=== PATIENT | female | born 1955 | race American Indian/Alaskan Native ===

== ENCOUNTER 2016-09-07 20:15 | Inpatient (IN) | payer MEDICARE ==
[2016-09-07] MEDS ORDERED: SENOKOT PO PRN (21:25)
[2016-09-07] MEDS ORDERED: D50W (25GM) IV PRN (21:25)
[2016-09-07] MEDS ORDERED: DULCOLAX PR PRN (21:25)
[2016-09-07] MEDS ORDERED: TYLENOL PO PRN (21:25)
[2016-09-07] MEDS ORDERED: PERCOCET 5/325 PO PRN (21:30)
[2016-09-07] MEDS ORDERED: APRESOLINE PO SCH (22:00)
[2016-09-07] MEDS: APRESOLINE PO SCH (22:55)
[2016-09-07] MEDS: COREG PO SCH (22:55)
[2016-09-07] MEDS: NOVOLOG SUB-Q SCH (22:56)
[2016-09-08 05:02] LABS: Basophils % (Auto) 0.7 % (0.0-1.8); Eosinophils % (Auto) 2.3 % (0.0-4.3); Hematocrit 25.8 % (30.3-42.9); Hemoglobin 8.7 gm/dl (10.1-14.3); Mean Corpuscular HGB Conc 34 % (30-34); Mean Corpuscular Hemoglobin 30 pg (28-32); Mean Corpuscular Volume 88 fl (79-97); Platelet Count 277 K/mm3 (140-440); Red Blood Count 2.94 M/mm3 (3.65-5.03); Red Cell Distribution Width 14.5 % (13.2-15.2); White Blood Count 8.3 K/mm3 (4.5-11.0)
[2016-09-08 05:45] LABS: Albumin 1.9 g/dL (3.9-5); Albumin/Globulin Ratio 0.5 %; Alkaline Phosphatase 67 units/L (35-129); Anion Gap 14 mmol/L; BUN/Creatinine Ratio 7.77; Bilirubin,Total 0.2 mg/dL (0.1-1.2); Blood Urea Nitrogen 21 mg/dL (7-17); Calcium 7.4 mg/dL (8.4-10.2); Carbon Dioxide 28 mmol/L (22-30); Chloride 94.9 mmol/L (98-107); Glucose 147 mg/dL (65-100); Sodium 133 mmol/L (137-145)
[2016-09-08 05:50] LABS: Alanine Aminotransferase < 5 units/L (7-56)
[2016-09-08] MEDS: APRESOLINE PO SCH ×3 (06:20→22:11)
[2016-09-08] MEDS: PROTONIX PO SCH (09:19)
[2016-09-08] MEDS: COREG PO SCH ×2 (09:19→22:17)
[2016-09-08] MEDS: NORVASC PO SCH (09:20)
[2016-09-08] MEDS: BABY ASPIRIN PO SCH (09:21)
[2016-09-08] MEDS: NOVOLOG SUB-Q SCH ×4 (09:21→22:00)
[2016-09-08] MEDS: HEPARIN SUB-Q SCH ×2 (09:22→22:13)
--- NOTE | 2016-09-08 11:25 | Consultation ---
History of Present Illness - Reason for Consult Consult date: 09/08/16 acute renal failure, chronic renal failure Requesting physician: GEOVANNA COOLEY - History of Present Illness 61yo F with PMHx of Hypertension, Type 2 DM, complicated by neuropathy, nephropathy, CKD stage 4 with baseline Cr around 2mg/dl in the past (BUN/Cr at 31/2.14mg/dl on 06/20/16), chronic infection of left foot and L 2nd toe infection , who initially presented with worsening infection over the last few months. She was started on IV ABX for possible sepsis in the setting of worsening left toe/foot infections and underwent Left 2nd toe amputation on 08/27 but due to ongoing deterioration of wound, pt was later recommended for higher level amputation; left BKA completed on 08/30/16. During her hospitalization her renal function worsened and started dialysis. Her last dialysis was on 09/06. She is now transferred to acute rehab and we are asked to continue renal care while in rehab. She has noticed that her urine out has increased. Past Medical History: diabetes, hypertension, renal failure, other (diabetic neuropathy) Past Surgical History: cholecystectomy, , total hip replacement (right) , tonsillectomy Social history: no significant social history Family history: no significant family history Medications and Allergies Allergies Allergy/AdvReac Type Severity Reaction Status Date / Time No Known Allergies Allergy Verified 08/26/16 01:26 Home Medications Medication Instructions Recorded Confirmed Last Taken Type Carvedilol [Coreg] 25 mg PO BID 08/26/16 08/26/16 08/25/16 History Indapamide [Lozol] 2.5 mg PO QDAY 08/26/16 08/26/16 08/25/16 History Insulin Glargine [Lantus] 25 units SQ QHS 08/26/16 08/26/16 08/24/16 History Losartan [Cozaar] 100 mg PO HS 08/26/16 08/26/16 08/25/16 History glyBURIDE [Diabeta] 2.5 mg PO BID 08/26/16 08/26/16 08/25/16 History Active Meds: Active Medications Acetaminophen (Tylenol) 650 mg PO Q4H PRN PRN Reason: Pain MILD(1-3)/Fever >100.5/MURRY Amlodipine Besylate (Norvasc) 10 mg PO QDAY [facility] Last Admin: 09/08/16 09:20 Dose: 10 mg Aspirin (Baby Aspirin) 81 mg PO QDAY [facility] Last Admin: 09/08/16 09:21 Dose: 81 mg Atorvastatin Calcium (Lipitor) 20 mg PO QHS [facility] Bisacodyl (Dulcolax) 10 mg IN QDAY PRN PRN Reason: Constipation unrelieved by MOM Carvedilol (Coreg) 25 mg PO BID [facility] Last Admin: 09/08/16 09:19 Dose: 25 mg Dextrose (D50w (25gm)) 50 ml IV PRN PRN PRN Reason: Hypoglycemia Heparin Sodium (Porcine) (Heparin) 5,000 unit SUB-Q Q12HR [facility] Last Admin: 09/08/16 09:22 Dose: 5,000 unit Hydralazine HCl (Apresoline) 100 mg PO Q8HR [facility] Last Admin: 09/08/16 06:20 Dose: 100 mg Insulin Aspart (Novolog) 0 units SUB-Q ACHS [facility] PRN Reason: Protocol Last Admin: 09/08/16 09:21 Dose: 1 units Oxycodone/Acetaminophen (Percocet 5/325) 1 tab PO Q6H PRN PRN Reason: Pain, Moderate (4-6) Pantoprazole Sodium (Protonix) 40 mg PO QDAY [facility] Last Admin: 09/08/16 09:19 Dose: 40 mg Senna (Senokot) 8.6 mg PO Q12H PRN PRN Reason: Laxative Effect Review of Systems Constitutional: fatigue, no fever, no chills, no poor appetite, no daytime sleepiness Ears, nose, mouth and throat: no ear discharge, no tinnitis, no nose pain, no nasal congestion Cardiovascular: no chest pain, no orthopnea, no palpitations Respiratory: no cough, no hemoptysis, no shortness of breath Gastrointestinal: no abdominal pain, no nausea, no vomiting, no diarrhea Musculoskeletal: no neck stiffness, no neck pain Integumentary: no rash, no pruritis, no redness Neurological: no weakness, no numbness Psychiatric: no anxiety, no memory loss Endocrine: no cold intolerance, no heat intolerance Hematologic/Lymphatic: no easy bruising, no easy bleeding Exam - Vital Signs Vital signs: Vital Signs Temp Pulse Resp BP Pulse Ox 98.4 F 74 18 150/70 97 09/07/16 22:00 09/07/16 22:00 09/07/16 22:00 09/07/16 22:00 09/07/16 22:00 - Physical Exam Narrative exam: General appearance: well-developed, well-nourished, appears stated age EENT: ATNC, PERRL, mucous membranes moist Neck: no JVD, vascath in place Respiratory: Present: Clear to Ascultation Cardiology: regular, S1S2 Gastrointestinal: normal, normoactive bowel sounds Integumentary: no rash, other (S/p L BKA) Neurologic: no focal deficit, alert and oriented x3, strength 5/5, CN 3-12 intact Psychiatric: mood/affect appropriate, cooperative Results - Lab Results 09/08/16 04:33 09/08/16 04:33 Most recent lab results Calcium 7.4 mg/dL (8.4-10.2) L 09/08/16 04:33 Assessment and Plan 1. Acute kidney injury on CKD stage 4, most likely due to ischemic non-oliguric ATN in the setting of sepsis/anemia/IV vanco treatment; CKD most likely due to underlying diabetic nephropathy. baseline CR around 2.1mg/dl in Jun 2016 2. Left 2nd toe infection s/p amputation, left dorsal foot infection. 3. Type 2 DM with neuropathy/nephropathy 4. Hypertension 5. Anemia of chronic disease 6. Hyponatremia Plan/Recommendations: - CR increased to 2.7 today. Dialysis is on hold since 09/06. - Will continue to monitor off dialysis. Strict I/Os - Continue supportive care for JAS/ATN avoid nephrotoxins, NSAIDs, IV contrast - Monitor for renal recovery - Glucose control as per primary attending - Will monitor electrolytes and renal function closely Further recommendations to follow.
--- NOTE | 2016-09-08 11:57 | History and Physical Report ---
History of Present Illness Date: 09/08/16 Referring Facility: [facility] Date of admission: 09/07/16 20:15 Chief Complaint: left BKA History of present illness: POST ADMISSION PHYSICIAN EVALUATION ONSET DATE: 08/26/2016 IMPAIRMENT GROUP CODE: 05.4 ETIOLOGIC DIAGNOSIS: left BKA secondary to left foot abscess STATUS CHANGES SINCE PREADMISSION SCREENING: PAS has been reviewed. In comparison, pt is with resolved leukocytosis and slightly improved H/H; BUN/Cr slightly increased, however, stable. Pt was able to participate well with therapies, however, continue with significant functional deficits. Pain is much improved; denies any phantom pain. Pt remains an appropriate candidate for IPR course. PREVIOUS FUNCTIONAL STATUS: Independent with ADLs, gait, transfers CURRENT FUNCTIONAL STATUS: modA for bed mobility; maxA x2 for transfers and standing in parallel bars; independent to maxA for ADLs HPI 61 y.o. female admitted to [facility] secondary to worsening left foot/2nd toe infection over the course of 3 months; reported to have ischemic changes that led to presentation to the ED. On admission, pt was found to also have an abscess at the left foot. Vascular Surgery consultation was completed and pt was recommended/taken for open ray amputation of the second toe with incision and drainage of a left dorsal foot abscess with debridement on 08/27. Due to ongoing deterioration of wound, pt was later recommended for higher level amputation; left BKA completed on 08/30/16. Post-operative course was significant for altered mental status, CVA work-up negative; acute on chronic renal failure requiring prn hemodialysis (new during acute care admission) thought to be secondary to sepsis/IV Vanc/anemia; acute blood loss anemia s/p 2U pRBCs; significant functional deficits secondary to BKA. Pt has completed IV ABX. Renal function has stabilized. Pt is now admitted to IRU for aggressive therapies and ongoing medical management. Past History Past Medical History: diabetes, hypertension, renal failure (stage 4) Past Surgical History: cholecystectomy, , total hip replacement (right) , tonsillectomy Social history: Lives alone. denies: smoking, alcohol abuse Family history: diabetes, hypertension Medications and Allergies Allergies Allergy/AdvReac Type Severity Reaction Status Date / Time No Known Allergies Allergy Verified 08/26/16 01:26 Home Medications Medication Instructions Recorded Confirmed Last Taken Type Carvedilol [Coreg] 25 mg PO BID 08/26/16 08/26/16 08/25/16 History Indapamide [Lozol] 2.5 mg PO QDAY 08/26/16 08/26/16 08/25/16 History Insulin Glargine [Lantus] 25 units SQ QHS 08/26/16 08/26/16 08/24/16 History Losartan [Cozaar] 100 mg PO HS 08/26/16 08/26/16 08/25/16 History glyBURIDE [Diabeta] 2.5 mg PO BID 08/26/16 08/26/16 08/25/16 History Active Meds: Active Medications Acetaminophen (Tylenol) 650 mg PO Q4H PRN PRN Reason: Pain MILD(1-3)/Fever >100.5/MURRY Amlodipine Besylate (Norvasc) 10 mg PO QDAY [facility] Last Admin: 09/08/16 09:20 Dose: 10 mg Aspirin (Baby Aspirin) 81 mg PO QDAY [facility] Last Admin: 09/08/16 09:21 Dose: 81 mg Atorvastatin Calcium (Lipitor) 20 mg PO QHS [facility] Bisacodyl (Dulcolax) 10 mg [place] QDAY PRN PRN Reason: Constipation unrelieved by MOM Carvedilol (Coreg) 25 mg PO BID [facility] Last Admin: 09/08/16 09:19 Dose: 25 mg Dextrose (D50w (25gm)) 50 ml IV PRN PRN PRN Reason: Hypoglycemia Heparin Sodium (Porcine) (Heparin) 5,000 unit SUB-Q Q12HR [facility] Last Admin: 09/08/16 09:22 Dose: 5,000 unit Hydralazine HCl (Apresoline) 100 mg PO Q8HR [facility] Last Admin: 09/08/16 06:20 Dose: 100 mg Insulin Aspart (Novolog) 0 units SUB-Q ACHS [facility] PRN Reason: Protocol Last Admin: 09/08/16 09:21 Dose: 1 units Oxycodone/Acetaminophen (Percocet 5/325) 1 tab PO Q6H PRN PRN Reason: Pain, Moderate (4-6) Pantoprazole Sodium (Protonix) 40 mg PO QDAY [facility] Last Admin: 09/08/16 09:19 Dose: 40 mg Senna (Senokot) 8.6 mg PO Q12H PRN PRN Reason: Laxative Effect Review of Systems All systems: negative Ears, nose, mouth and throat: no headache Cardiovascular: no chest pain, no lightheadedness Respiratory: no cough Gastrointestinal: no nausea, no vomiting, no constipation Genitourinary Female: no dysuria Musculoskeletal: muscle weakness Neurological: no parathesias Exam - Constitutional Vitals: Vital Signs - 12hr 09/08/16 09/08/16 09/08/16 06:22 08:19 09:19 Temperature 98.4 F Pulse Rate 70 Pulse Rate [ 70 70 From Monitor] Respiratory 18 Rate Blood Pressure 162/76 Blood Pressure 152/70 162/76 [Left Arm] O2 Sat by Pulse 92 Oximetry 09/08/16 09:20 Temperature Pulse Rate 70 Pulse Rate [ From Monitor] Respiratory Rate Blood Pressure 162/76 Blood Pressure [Left Arm] O2 Sat by Pulse Oximetry General appearance: no acute distress, obese - EENT Eyes: EOM intact ENT: hearing intact - Neck Neck: supple, normal ROM - Respiratory Respiratory effort: normal Respiratory: bilateral: CTA - Cardiovascular Rhythm: regular Heart Sounds: Present: S1 & S2 - Extremities Extremity abnormal: edema (BLE), other (linh/sutures to Left residual limb; no active drainage, healing well) - Gastrointestinal General gastrointestinal: Present: soft, non-tender, non-distended, normal bowel sounds - Musculoskeletal Musculoskeletal: other (LLE- 2/5 hip flexion, 3/5 knee flexion/extension; otherwise, 4/5 strength in remaining extremities) - Neurologic Neurologic: CNII-XII intact, other (sensation grossly intact) - Psychiatric Psychiatric: appropriate mood/affect, intact judgment & insight, memory intact, cooperative - Labs CBC & Chem 7: 09/08/16 04:33 09/08/16 04:33 Labs: Laboratory Results - last 72 hr 09/07/16 09/08/16 09/08/16 21:50 04:33 04:33 WBC 8.3 RBC 2.94 L Hgb 8.7 L Hct 25.8 L MCV 88 MCH 30 MCHC 34 RDW 14.5 Plt Count 277 Lymph % (Auto) 16.3 Metcalfe % (Auto) 10.9 H Eos % (Auto) 2.3 Baso % (Auto) 0.7 Lymph # 1.4 Metcalfe # 0.9 H Eos # 0.2 Baso # 0.1 Seg Neutrophils % 69.8 Seg Neutrophils # 5.8 Sodium 133 L Potassium 4.0 Chloride 94.9 L Carbon Dioxide 28 Anion Gap 14 BUN 21 H Creatinine 2.7 H Estimated GFR 22 BUN/Creatinine Ratio 7.77 Glucose 147 H POC Glucose 166 H Calcium 7.4 L Total Bilirubin 0.2 AST 9 ALT < 5 L Alkaline Phosphatase 67 Total Protein 6.0 L Albumin 1.9 L Albumin/Globulin Ratio 0.5 09/08/16 05:51 WBC RBC Hgb Hct MCV MCH MCHC RDW Plt Count Lymph % (Auto) Metcalfe % (Auto) Eos % (Auto) Baso % (Auto) Lymph # Metcalfe # Eos # Baso # Seg Neutrophils % Seg Neutrophils # Sodium Potassium Chloride Carbon Dioxide Anion Gap BUN Creatinine Estimated GFR BUN/Creatinine Ratio Glucose POC Glucose 150 H Calcium Total Bilirubin AST ALT Alkaline Phosphatase Total Protein Albumin Albumin/Globulin Ratio Assessment and Plan Assessment and plan: 61 y.o. female s/p left BKA secondary to non-healing diabetic foot ulcer; post- op blood loss anemia, acute on chronic renal failure, gait dysfunction. The patient is medically stable, however, requires ongoing medical management. Pt is appropriate for inpatient rehabilitation admission and is thought to be able to tolerate at least 3 hours of therapy a day, 5 days a week including 1 hour of physical therapy, 1 hour of occupational therapy, and 1 hour of speech therapy. Patient is able to understand and follow basic directions and has attainable rehab goals. Potential barriers/complications include falls, wound dehiscence, skin breakdown, phantom pain, worsening renal function and return to HD, depression, DVT, PE, hypotension, syncope. Plan 1. Rehabilitation- Pt will undergo multidisciplinary/integrative rehab PT/OT/ AUTOMOBILE OR TRUCK RENTAL DISPATCHER, Nursing. Areas to be addressed include, but are not limited to PT for mobility, strengthening, transfer training, ROM, endurance, stairs, balance; OT for ADLs, household tasks, adaptive equipment; AUTOMOBILE OR TRUCK RENTAL DISPATCHER for cognitive screening; Nursing for carryover of therapies, pain control, education, skin integrity, medication management, bowel/bladder management; Nutrition as needed; human resources services specialist for discharge planning and equipment needs. Potential interventions include appropriate assistive device or adaptive equipment. Expected overall level of functional improvement by discharge is Jenny to CGA for ADLs at wheelchair level; Jenny for wheelchair mobility; CGA to supervision for transfers. CGA/Claire for short distances with RW. Pt will tentatively be discharged home with outpatient PT. Estimated length of stay is 10-14 days. 2. s/p left BKA- [place] to LLE; pain control; monitor for phantom pain; wound care 3. acute on chronic renal failure- Nephrology following; holding on any further HD at this time 4. HTN- continue Norvasc and coreg; adjust as needed 5. DM- continue ADA diet, SSI; hold lantus for now; home dose is 25U QHS and is not currently requiring much sliding scale; resume when appropriate 6. anemia- likely acute blood loss and also due to chronic renal failure; follow 7. hyponatremia- follow 8. DVT px- heparin - Patient Problems (1) Amputation of left lower extremity below knee Current Visit: Yes Status: Acute (2) Diabetic infection of left foot Current Visit: No Status: Acute (3) Acute on chronic renal failure Current Visit: Yes Status: Acute (4) HTN (hypertension) Current Visit: Yes Status: Chronic Qualifiers: Hypertension type: essential hypertension Qualified Code(s): I10 - Essential (primary) hypertension (5) Anemia due to blood loss, acute Current Visit: Yes Status: Acute (6) Hyponatremia Current Visit: Yes Status: Acute (7) Diabetes Current Visit: Yes Status: Chronic Qualifiers: Diabetes mellitus type: type 2 Diabetes mellitus complication status: with neurologic complications Diabetes mellitus complication detail: with polyneuropathy Diabetes mellitus vermin exterminator insulin use: with vermin exterminator use Qualified Code(s): E11.42 - Type 2 diabetes mellitus with diabetic polyneuropathy; Z79.4 - termite exterminator helper (current) use of insulin
[2016-09-09] MEDS: APRESOLINE PO SCH ×3 (05:42→22:10)
[2016-09-09] MEDS: NOVOLOG SUB-Q SCH ×4 (07:30→23:29)
[2016-09-09] MEDS: NORVASC PO SCH (08:56)
[2016-09-09] MEDS: BABY ASPIRIN PO SCH (08:56)
[2016-09-09] MEDS: COREG PO SCH ×2 (08:57→22:09)
[2016-09-09] MEDS: PROTONIX PO SCH (08:57)
[2016-09-09] MEDS: HEPARIN SUB-Q SCH ×3 (08:58→22:10)
--- NOTE | 2016-09-09 11:01 | Progress Note ---
Assessment and Plan - Patient Problems (1) Acute kidney failure with tubular necrosis Current Visit: Yes Status: Acute Plan to address problem: Follow-up kidney function and electrolytes. If remains stable, should be able to DC dialysis catheter on Sunday (2) Chronic kidney disease, stage IV (severe) Current Visit: Yes Status: Acute Plan to address problem: Continue management (3) Hyponatremia Current Visit: Yes Status: Acute Plan to address problem: Follow-up sodium (4) HTN (hypertension) Current Visit: Yes Status: Chronic Qualifiers: Hypertension type: essential hypertension Qualified Code(s): I10 - Essential (primary) hypertension Plan to address problem: Follow-up blood pressure on current medications (5) Diabetic infection of left foot Current Visit: No Status: Acute Plan to address problem: Patient is status post left below the knee amputation and is undergoing rehabilitation (6) Type 2 diabetes mellitus with diabetic neuropathy Current Visit: Yes Status: Acute Plan to address problem: Blood sugar control by primary attending (7) Anemia in chronic kidney disease (CKD) Current Visit: Yes Status: Acute Plan to address problem: Follow-up hemoglobin. We need to consider erythropoietin is less than 9 g/dL and iron stores normal Subjective Date of service: 09/09/16 Principal diagnosis: acute kidney injury/acute tubular necrosis Interval history: Patient seen sitting on the chair undergoing rehabilitation. She has no complaints. Denies shortness of breath, chest pain nausea or vomiting. Objective - Exam Narrative Exam: Morbidly obese middle-aged after medical female sitting on the chair in no acute distress CVS S1-S2 regular rate rhythm without murmur, rub or gallop Chest clear to auscultation Abdomen soft, obese, nontender no organomegaly no bruit bowel sounds present Extremities no edema no cyanosis or clubbing Neuro awake, alert oriented x3 no gross deficit - Vital Signs Vital signs: Vital Signs - 12hr 09/09/16 09/09/16 08:04 08:56 Temperature 98.0 F Pulse Rate 68 Pulse Rate [ 68 From Monitor] Respiratory 18 Rate Blood Pressure 131/67 Blood Pressure 131/67 [Left Arm] O2 Sat by Pulse 96 Oximetry - Lab 09/08/16 04:33 09/08/16 04:33 Most recent lab results Calcium 7.4 mg/dL (8.4-10.2) L 09/08/16 04:33
[2016-09-09 12:54] LABS: BUN/Creatinine Ratio 7.87; Calcium 7.6 mg/dL (8.4-10.2); Chloride 94.7 mmol/L (98-107); Potassium 4.3 mmol/L (3.6-5.0)
--- NOTE | 2016-09-09 13:06 | Progress Note ---
Assessment and Plan 61 y.o. female s/p left BKA secondary to non-healing diabetic foot ulcer; post- op blood loss anemia, acute on chronic renal failure, gait dysfunction - s/p left BKA- [place] to LLE; pain well controlled; monitor for phantom pain; wound care - acute on chronic renal failure- Nephrology following; holding on any further HD at this time - HTN- stable on Norvasc and coreg - DM- stable on SSI; continue to hold home lantus - anemia- stable - hyponatremia- stable - DVT px- heparin - Patient Problems (1) Amputation of left lower extremity below knee Current Visit: Yes Status: Acute (2) Diabetic infection of left foot Current Visit: No Status: Acute (3) Acute on chronic renal failure Current Visit: Yes Status: Acute (4) HTN (hypertension) Current Visit: Yes Status: Chronic Qualifiers: Hypertension type: essential hypertension Qualified Code(s): I10 - Essential (primary) hypertension (5) Anemia due to blood loss, acute Current Visit: Yes Status: Acute (6) Hyponatremia Current Visit: Yes Status: Acute (7) Diabetes Current Visit: Yes Status: Chronic Qualifiers: Diabetes mellitus type: type 2 Diabetes mellitus complication status: with neurologic complications Diabetes mellitus complication detail: with polyneuropathy Diabetes mellitus alf insulin use: with termination clerk use Qualified Code(s): E11.42 - Type 2 diabetes mellitus with diabetic polyneuropathy; Z79.4 - terminal manager (current) use of insulin Subjective Date of service: 09/09/16 Principal diagnosis: left BKA Interval history: Pt seen in room this AM, IPR F/U, s/p left BKA. Pt denies any pain; no new complaints on this AM Objective - Constitutional Vitals: Vital Signs - 12hr 09/09/16 09/09/16 08:04 08:56 Temperature 98.0 F Pulse Rate 68 Pulse Rate [ 68 From Monitor] Respiratory 18 Rate Blood Pressure 131/67 Blood Pressure 131/67 [Left Arm] O2 Sat by Pulse 96 Oximetry General appearance: Present: no acute distress, obese - EENT Eyes: EOM intact ENT: hearing intact - Neck Neck: supple, normal ROM - Respiratory Respiratory effort: normal Extremity abnormal: other ([place] to Left LE) - Gastrointestinal General gastrointestinal: Present: soft, non-tender - Neurologic Neurologic: CNII-XII intact - Psychiatric Psychiatric: appropriate mood/affect, cooperative - Allied health notes Allied health notes reviewed: PT (modA for bed mobility and sliding board transfers), OT (Independent to totalA for ADLs) - Labs CBC & Chem 7: 09/08/16 04:33 09/09/16 12:03 Labs: Abnormal lab results 09/08/16 09/08/16 09/09/16 Range/Units 16:41 21:26 06:23 Sodium (137-145) mmol/L Chloride (98-107) mmol/L BUN (7-17) mg/dL Creatinine (0.7-1.2) mg/dL Glucose (65-100) mg/dL POC Glucose 182 H 123 H 133 H (70-105) Calcium (8.4-10.2) mg/dL 09/09/16 09/09/16 Range/Units 11:40 12:03 Sodium 133 L (137-145) mmol/L Chloride 94.7 L (98-107) mmol/L BUN 26 H (7-17) mg/dL Creatinine 3.3 H (0.7-1.2) mg/dL Glucose 124 H (65-100) mg/dL POC Glucose 128 H (70-105) Calcium 7.6 L (8.4-10.2) mg/dL
--- NOTE | 2016-09-09 13:12 | IRU Plan of Care ---
Interdisciplinary Plan of Care - IP IRU INTERDISCIPLINARY PLAN: [facility] Plan of Care IRU Interdisciplinary Care Plan Start: 09/07/16 22: 35 Freq: Admission then PRN Status: Active Document 09/09/16 10:03 DB (Rec: 09/09/16 10:06 DB [id number]) Interdisciplinary Problem List Interdisciplinary Problem List Interdisciplinary Problem List Impaired Bathing/Grooming Query Text:Answers will Trigger Problems Impaired Dressing and Outcomes on Worklist. Impaired Mobility Impaired Transfers Impaired Toileting Impaired Nutrition Pain Management Knowledge Deficits Impaired Skin/Tissue Integrity Impaired Safety Medications Education Diabetes Education IRU Interdisciplinary Care Plan Therapy Services Therapy Services Will Include: Physical Therapy Query Text:Patient will be seen for a Occupational Therapy minimum of 3 hours of daily therapy 5 out of 7 days a week. Therapy intensity may be adjusted within a 7 consecutive day period to effectively serve the individual needs of the patient. Treatment Frequency/Intensity/Duration Treatment Frequency 5 days per week Treatment Intensity 1.5 hours per discipline (PT/OT ) daily Treatment Duration 10-14 days Problem Area: Eating/Swallowing Eating/Swallowing Outcomes Eating/Swallowing Interventions Problem Area: Bathing/Grooming Bathing/Grooming Outcomes Improve Cloud w/ Bathing Bathing/Grooming Interventions ADL Training Use of Assistive Devices Therapeutic Exercise Therapeutic Activity Balance Work Activity Tolerance Work Patient/Caregiver Education Problem Area: Dressing Dressing Outcomes Improve Cloud w/ LB Dressing Dressing Interventions ADL Training Use of Assistive Devices Therapeutic Exercise Balance Work Patient/Caregiver Education Problem Area: Mobility Mobility Outcomes Improve Cloud w/ Bed Mobility Improve Cloud w/ Ambulation Improve Cloud w/ Stairs /Curb Improve Cloud w/ Wheelchair Mobility Interventions Therapeutic Exercise Neuromuscular Re-Ed. Use of Assistive Devices Patient/Caregiver Education Bed Mobility Work Gait Training W/C Mobility Work Problem Area: Transfers Transfers Outcomes Improve Cloud w/ Bed Transfers Improve Cloud w/ Toilet Transfers Improve Cloud w/ Tub/ Shower Transfers Improve Cloud w/ Car Transfers Transfers Interventions Transfer Training Therapeutic Exercise Neuromuscular Re-Education Use of Assistive Devices Patient/Caregiver Education Problem Area: Bowel/Bladder Managment Bowel/Bladder Outcomes Bowel/Bladder Interventions Problem Area: Toileting Toileting Outcomes Improve Cloud w/ Toileting Toileting Interventions ADL Training Balance Work Use of Assistive Devices Patient/Caregiver Education Problem Area: Nutrition Nutrition Outcomes Understand and Comply w/ Diet Nutrition Interventions Monitor Nutrient Intake Patient/Caregiver Education Problem Area: Comprehension Comprehension Outcomes Comprehension Interventions Problem Area: Expression Expression Outcomes Expression Interventions Problem Area: Problem Solving Problem Solving Outcomes Problem Solving Interventions Problem Area: Memory Memory Outcomes Memory Interventions Problem Area: Pain Management Pain Management Outcomes Demonstrate/Verbalize Pain Strategies Pain Management Interventions Medication Management Positioning/Turning Patient/Caregiver Education Problem Area: Knowledge Deficits Knowledge Deficits Outcomes Verbalize Precautions Knowledge Deficits Interventions Body Mechanics/Joint Protection Education Disease Management Education Health Maintainence Education Safety Education Problem Area: Skin/Tissue Integrity Skin/Tissue Integrity Outcomes Exhibit Healing of Wound/ Incision Demonstrate Understanding of Pressure Relief Skin/Tissue Integrity Interventions Skin/Wound Care Pressure Relief Instruction Dressing Change Education Positioning/Turning Problem Area: Social Interaction Social Interaction Outcomes Social Interaction Interventions Problem Area: Adjustment to Disability Adjustment to Disability Outcomes Adjustment to Disability Interventions Problem Area: Discharge Concerns Discharge Concerns Outcomes Discharge Home w/ Necessary Equipment Have Home Health/Outpatient Services Discharge Concerns Interventions Discharge Planning Family/Caregiver Conference Family/Caregiver Training Problem Area: Community Reintegration Community Reintegration Outcomes Demonstrate Understanding of Community Resources Community Reintegration Interventions Provide Community Resources Problem Area: Home Management Home Management Outcomes Home Management Interventions Problem Area: Safety Safety Outcomes Provide Safe Environment Demonstrate Good Safety w/ Transfers/Mobility Safety Interventions Identify Fall Risk [place] Pt. to Environment Reduce Environmental Hazards Problem Area: Medication Education Medication Education Outcomes Patient/Caregiver will Verbalize Understanding of Medications Medication Education Interventions Explain Administration/Side Effects/Interactions Problem Area: Diabetes Education Diabetes Education Outcomes Demonstrate Knowledge of Resources Availlable in Diabetic Ed. Folder Diabetes Education Interventions Give Pt. Diabetes Education Folder Problem Area: Oxygenation Oxygenation Outcomes Oxygenation Interventions Problem Area: Cardiovascular Cardiovascular Outcomes Cardiovascular Interventions Physician Only Medical Prognosis and Rehabilitation Patient demonstrates good Potential (Completed by Physician) rehab potential. Medical Prognosis: Good This plan of care has been developed based on the findings from the pre- admission assessment, post admission physician evaluation, information gathered from the assessments from all therapy disciplines and other pertinent clinicians. The plan of care has been reviewed and discussed in collaboration with the interdisciplinary team. The plan of care will be reviewed and updated at least weekly. 61 y.o. female s/p left BKA secondary to non-healing diabetic foot ulcer; post- op blood loss anemia, acute on chronic renal failure, gait dysfunction. The patient remains at risk for falls, wound dehiscence, skin breakdown, phantom pain, worsening renal function and return to HD, depression, DVT, PE, hypotension, syncope. Will need ongoing close monitoring of renal function, anemia, DM, HTN. Pt is currently tolerating therapies, initiation of sliding board for transfers. Pt remains an appropriate candidate for IPR admission.
[2016-09-10 04:36] LABS: Hematocrit 26.1 % (30.3-42.9); Hemoglobin 8.6 gm/dl (10.1-14.3); Mean Corpuscular HGB Conc 33 % (30-34); Mean Corpuscular Hemoglobin 28 pg (28-32); Mean Corpuscular Volume 86 fl (79-97); Platelet Count 248 K/mm3 (140-440); Red Blood Count 3.03 M/mm3 (3.65-5.03); Red Cell Distribution Width 14.7 % (13.2-15.2); White Blood Count 7.5 K/mm3 (4.5-11.0)
[2016-09-10 05:22] LABS: BUN/Creatinine Ratio 8.7; Calcium 7.4 mg/dL (8.4-10.2); Magnesium 1.8 mg/dL (1.7-2.3); Phosphorous 5.7 mg/dL (2.5-4.5); Potassium 3.9 mmol/L (3.6-5.0)
[2016-09-10] MEDS: APRESOLINE PO SCH ×3 (05:26→22:47)
[2016-09-10] MEDS: NOVOLOG SUB-Q SCH ×4 (07:30→22:53)
[2016-09-10] MEDS: BABY ASPIRIN PO SCH (09:04)
[2016-09-10] MEDS: COREG PO SCH ×2 (09:04→22:47)
[2016-09-10] MEDS: NORVASC PO SCH (09:05)
[2016-09-10] MEDS: PROTONIX PO SCH (09:06)
[2016-09-10] MEDS: HEPARIN SUB-Q SCH ×2 (09:11→22:48)
--- NOTE | 2016-09-10 11:36 | Progress Note ---
Assessment and Plan - Patient Problems (1) Acute kidney failure with tubular necrosis Current Visit: Yes Status: Acute Plan to address problem: Acute tubular necrosis. Kidney function is improving. No indication for dialysis now. Still has some edema. Will continue to monitor renal function and electrolytes. Discontinue dialysis catheter in 1-2 days if continues to improve (2) Chronic kidney disease, stage IV (severe) Current Visit: Yes Status: Acute Plan to address problem: Continue management (3) Hyponatremia Current Visit: Yes Status: Acute Plan to address problem: Follow-up sodium (4) HTN (hypertension) Current Visit: Yes Status: Chronic Qualifiers: Hypertension type: essential hypertension Qualified Code(s): I10 - Essential (primary) hypertension Plan to address problem: Follow-up blood pressure on current medications (5) Diabetic infection of left foot Current Visit: No Status: Acute Plan to address problem: Patient is status post left below the knee amputation and is undergoing rehabilitation (6) Type 2 diabetes mellitus with diabetic neuropathy Current Visit: Yes Status: Acute Plan to address problem: Blood sugar control by primary attending (7) Anemia in chronic kidney disease (CKD) Current Visit: Yes Status: Acute Plan to address problem: Follow-up hemoglobin. We need to consider erythropoietin is less than 9 g/dL and iron stores normal Subjective Principal diagnosis: left BKA Interval history: Patient seen lying in bed. She has no complaints. Denies shortness of breath, chest pain nausea or vomiting. Objective - Exam Narrative Exam: Morbidly obese middle-aged after medical female lying in bed in no acute distress CVS S1-S2 regular rate rhythm without murmur, rub or gallop Chest clear to auscultation Abdomen soft, obese, nontender no organomegaly no bruit bowel sounds present Extremities no edema no cyanosis or clubbing Neuro awake, alert oriented x3 no gross deficit - Vital Signs Vital signs: Vital Signs - 12hr 09/10/16 09/10/16 05:20 09:04 Temperature 98.4 F Pulse Rate 65 Pulse Rate [ 65 Right Radial] Respiratory 18 Rate Blood Pressure 140/62 Blood Pressure 137/60 [Left Arm] O2 Sat by Pulse 95 Oximetry - Lab 09/10/16 04:15 09/10/16 04:15 Most recent lab results Calcium 7.4 mg/dL (8.4-10.2) L 09/10/16 04:15 Phosphorus 5.7 mg/dL (2.5-4.5) H 09/10/16 04:15 Magnesium 1.8 mg/dL (1.7-2.3) 09/10/16 04:15
[2016-09-11 05:31] LABS: Hematocrit 25.6 % (30.3-42.9); Hemoglobin 8.5 gm/dl (10.1-14.3); Mean Corpuscular HGB Conc 33 % (30-34); Mean Corpuscular Hemoglobin 29 pg (28-32); Mean Corpuscular Volume 87 fl (79-97); Platelet Count 238 K/mm3 (140-440); Red Blood Count 2.96 M/mm3 (3.65-5.03); Red Cell Distribution Width 14.7 % (13.2-15.2); White Blood Count 7.2 K/mm3 (4.5-11.0)
[2016-09-11] MEDS: APRESOLINE PO SCH ×3 (05:48→22:58)
[2016-09-11 05:50] LABS: BUN/Creatinine Ratio 9.71; Calcium 7.3 mg/dL (8.4-10.2); Chloride 95.4 mmol/L (98-107)
[2016-09-11] MEDS: BABY ASPIRIN PO SCH (09:56)
[2016-09-11] MEDS: COREG PO SCH ×2 (09:56→22:59)
[2016-09-11] MEDS: NORVASC PO SCH (09:57)
[2016-09-11] MEDS: PROTONIX PO SCH (09:57)
[2016-09-11] MEDS: HEPARIN SUB-Q SCH ×2 (09:58→23:00)
--- NOTE | 2016-09-11 11:42 | Progress Note ---
Assessment and Plan 61 y.o. female s/p left BKA secondary to non-healing diabetic foot ulcer; post- op blood loss anemia, acute on chronic renal failure, gait dysfunction - s/p left BKA- [place] to LLE; pain well controlled; monitor for phantom pain; wound care - acute on chronic renal failure- Nephrology f/u appreciated. Cr. 3.5 today. Pt. wondering about dialysis catheter. will leave it to Nephrology. - HTN- stable on Norvasc and coreg - DM- stable on SSI; continue to hold home lantus - anemia- stable. Hb. 8.5 will recheck. - hyponatremia- stable - DVT px- heparin - Patient Problems (1) Acute kidney failure with tubular necrosis Current Visit: Yes Status: Acute (2) Acute on chronic renal failure Current Visit: Yes Status: Acute (3) Amputation of left lower extremity below knee Current Visit: Yes Status: Acute (4) Anemia due to blood loss, acute Current Visit: Yes Status: Acute (5) Anemia in chronic kidney disease (CKD) Current Visit: Yes Status: Acute (6) Chronic kidney disease, stage IV (severe) Current Visit: Yes Status: Acute Subjective Date of service: 09/11/16 Principal diagnosis: left BKA Interval history: Patient seen and examined. wondering about dialysis catheter. Nephrology f/u appreciated. no N/V/C/D, PT/OT notes reviewed. Objective - Constitutional Vitals: Vital Signs - 12hr 09/11/16 09/11/16 09/11/16 03:45 09:56 09:57 Temperature 98.7 F Pulse Rate 65 65 Pulse Rate [ 96 H From Monitor] Respiratory 20 Rate Blood Pressure 132/59 132/59 Blood Pressure 137/62 [Left Arm] O2 Sat by Pulse 91 Oximetry General appearance: Present: no acute distress - EENT Eyes: PERRL ENT: hearing intact - Neck Neck: supple - Respiratory Respiratory effort: normal Respiratory: bilateral: CTA - Breasts Breasts: deferred - Cardiovascular Rhythm: regular Heart Sounds: Present: S1 & S2 Extremities: no ischemia, No edema, abnormal (s/p Lt. BKA, ROM of knee-full. no flexion contracture. motor/sensory intact) - Gastrointestinal General gastrointestinal: Present: soft, non-tender, normal bowel sounds - Genitourinary Female genitourinary: deferred - Integumentary Integumentary: clear, warm, dry - Musculoskeletal Musculoskeletal: strength equal bilaterally - Neurologic Neurologic: CNII-XII intact, no focal deficits - Allied health notes Allied health notes reviewed: nursing, PT, OT - Labs CBC & Chem 7: 09/11/16 05:03 09/11/16 05:03 Labs: Abnormal lab results 09/10/16 09/10/16 09/10/16 Range/Units 12:28 17:05 22:29 RBC (3.65-5.03) M/mm3 Hgb (10.1-14.3) gm/dl Hct (30.3-42.9) % Sodium (137-145) mmol/L Chloride (98-107) mmol/L BUN (7-17) mg/dL Creatinine (0.7-1.2) mg/dL Glucose (65-100) mg/dL POC Glucose 106 H 160 H 133 H (70-105) Calcium (8.4-10.2) mg/dL 09/11/16 09/11/16 09/11/16 Range/Units 05:03 05:03 05:23 RBC 2.96 L (3.65-5.03) M/mm3 Hgb 8.5 L (10.1-14.3) gm/dl Hct 25.6 L (30.3-42.9) % Sodium 135 L (137-145) mmol/L Chloride 95.4 L (98-107) mmol/L BUN 34 H (7-17) mg/dL Creatinine 3.5 H (0.7-1.2) mg/dL Glucose 124 H (65-100) mg/dL POC Glucose 136 H (70-105) Calcium 7.3 L (8.4-10.2) mg/dL
[2016-09-11] MEDS: NOVOLOG SUB-Q SCH ×4 (12:00→23:39)
--- NOTE | 2016-09-11 20:55 | Progress Note ---
Assessment and Plan - Patient Problems (1) Chronic kidney disease, stage IV (severe) Current Visit: Yes Status: Acute Plan to address problem: Continue management (2) Hyponatremia Current Visit: Yes Status: Acute Plan to address problem: Follow-up sodium (3) HTN (hypertension) Current Visit: Yes Status: Chronic Qualifiers: Hypertension type: essential hypertension Qualified Code(s): I10 - Essential (primary) hypertension Plan to address problem: Follow-up blood pressure on current medications (4) Diabetic infection of left foot Current Visit: No Status: Acute Plan to address problem: Patient is status post left below the knee amputation and is undergoing rehabilitation (5) Type 2 diabetes mellitus with diabetic neuropathy Current Visit: Yes Status: Acute Plan to address problem: Blood sugar control by primary attending (6) Anemia in chronic kidney disease (CKD) Current Visit: Yes Status: Acute Plan to address problem: Follow-up hemoglobin. We need to consider erythropoietin is less than 9 g/dL and iron stores normal (7) Acute kidney failure with tubular necrosis Current Visit: Yes Status: Acute Plan to address problem: Kidney disease is a bit worse. Also has worsening edema. Follow-up kidney function in morning. Unfortunately if kidney indices still worsening with the worsening edema, would need dialysis. Subjective Date of service: 09/11/16 Principal diagnosis: left BKA Interval history: Patient seen sitting on chair getting her hair done. She has no complaints. Denies shortness of breath, chest pain nausea or vomiting. Objective - Exam Narrative Exam: Morbidly obese middle-aged after medical female lying in bed in no acute distress CVS S1-S2 regular rate rhythm without murmur, rub or gallop Chest clear to auscultation Abdomen soft, obese, nontender no organomegaly no bruit bowel sounds present Extremities 2+ edema B/L Neuro awake, alert oriented x3 no gross deficit - Vital Signs Vital signs: Vital Signs - 12hr 09/11/16 09/11/16 09/11/16 09:56 09:57 17:00 Temperature 97.5 F L Pulse Rate 65 65 Pulse Rate [ 58 L Right Dorsalis Pedis] Blood Pressure 132/59 132/59 Blood Pressure 138/65 [Left Arm] O2 Sat by Pulse 98 Oximetry - Lab 09/11/16 05:03 09/11/16 05:03 Most recent lab results Calcium 7.3 mg/dL (8.4-10.2) L 09/11/16 05:03 Phosphorus 5.7 mg/dL (2.5-4.5) H 09/10/16 04:15 Magnesium 1.8 mg/dL (1.7-2.3) 09/10/16 04:15
[2016-09-12] MEDS: APRESOLINE PO SCH ×3 (05:37→22:00)
[2016-09-12] MEDS: COREG PO SCH ×2 (08:49→23:02)
[2016-09-12] MEDS: NOVOLOG SUB-Q SCH ×4 (08:49→23:00)
[2016-09-12] MEDS: NORVASC PO SCH (08:49)
[2016-09-12 09:28] LABS: Potassium TNR mmol/L (3.6-5.0); Sodium TNR mmol/L (137-145)
[2016-09-12 09:29] LABS: Anion Gap TNR mmol/L; BUN/Creatinine Ratio TNR; Blood Urea Nitrogen TNR mg/dL (7-17); Calcium TNR mg/dL (8.4-10.2); Carbon Dioxide TNR mmol/L (22-30); Chloride TNR mmol/L (98-107); Glucose TNR mg/dL (65-100)
--- NOTE | 2016-09-12 09:57 | Progress Note ---
Assessment and Plan 61 y.o. female s/p left BKA secondary to non-healing diabetic foot ulcer; post- op blood loss anemia, acute on chronic renal failure, gait dysfunction - s/p left BKA- [place] to LLE; pain well controlled; monitor for phantom pain; wound care - acute on chronic renal failure- Nephrology f/u appreciated. Cr. 3.5 yesterday. BMP pending. per nephrology, might need HD. - HTN- stable on Norvasc and coreg - DM- stable on SSI; continue to hold home lantus - anemia- stable. Hb. 8.5 yesterday. f/u H/H - hyponatremia- stable - DVT px- heparin - Patient Problems (1) Acute kidney failure with tubular necrosis Current Visit: Yes Status: Acute (2) Acute on chronic renal failure Current Visit: Yes Status: Acute (3) Amputation of left lower extremity below knee Current Visit: Yes Status: Acute (4) Anemia due to blood loss, acute Current Visit: Yes Status: Acute (5) Anemia in chronic kidney disease (CKD) Current Visit: Yes Status: Acute (6) Chronic kidney disease, stage IV (severe) Current Visit: Yes Status: Acute Subjective Date of service: 09/12/16 Principal diagnosis: left BKA Interval history: Patient seen and examined. wondering about dialysis catheter. Nephrology f/u appreciated. no N/V/C/D, PT/OT notes reviewed. Objective - Constitutional Vitals: Vital Signs - 12hr 09/11/16 09/12/16 22:59 08:49 Pulse Rate 60 59 L Blood Pressure 146/72 114/48 General appearance: Present: no acute distress - EENT Eyes: PERRL ENT: hearing intact - Respiratory Respiratory effort: normal Respiratory: bilateral: CTA - Cardiovascular Rhythm: regular Heart Sounds: Present: S1 & S2 Extremities: pulses intact Extremity abnormal: edema, other (left s/p BKA- ROM of knee full. no knee contracture.) - Gastrointestinal General gastrointestinal: Present: soft, non-tender, normal bowel sounds - Integumentary Integumentary: clear, warm, dry - Musculoskeletal Musculoskeletal: strength equal bilaterally - Neurologic Neurologic: CNII-XII intact, no focal deficits - Psychiatric Psychiatric: appropriate mood/affect, intact judgment & insight - Allied health notes Allied health notes reviewed: nursing, PT, OT - Labs CBC & Chem 7: 09/11/16 05:03 09/12/16 07:58 Labs: Abnormal lab results 09/11/16 09/11/16 09/11/16 Range/Units 12:01 17:46 21:23 POC Glucose 134 H 136 H 189 H (70-105) 09/12/16 Range/Units 05:35 POC Glucose 117 H (70-105)
[2016-09-12] MEDS: PROTONIX PO SCH (10:18)
[2016-09-12] MEDS: BABY ASPIRIN PO SCH (10:18)
[2016-09-12] MEDS: HEPARIN SUB-Q SCH ×2 (10:19→23:00)
[2016-09-12 15:00] LABS: Hematocrit 28.2 % (30.3-42.9); Hemoglobin 9.2 gm/dl (10.1-14.3); Mean Corpuscular HGB Conc 33 % (30-34); Mean Corpuscular Hemoglobin 29 pg (28-32); Mean Corpuscular Volume 87 fl (79-97); Platelet Count 261 K/mm3 (140-440); Red Blood Count 3.24 M/mm3 (3.65-5.03); Red Cell Distribution Width 14.9 % (13.2-15.2); White Blood Count 6.1 K/mm3 (4.5-11.0)
[2016-09-12 15:12] LABS: Calcium 7.4 mg/dL (8.4-10.2); Potassium 4.5 mmol/L (3.6-5.0)
--- NOTE | 2016-09-12 17:52 | Progress Note ---
Assessment and Plan - Patient Problems (1) Acute kidney failure with tubular necrosis Current Visit: Yes Status: Acute Plan to address problem: Kidney disease is a bit worse. Also has worsening edema. Follow-up kidney function in morning. Unfortunately if kidney indices still worsening with the worsening edema, would need dialysis.Get 24 hr urine Creatinine clearance (2) Chronic kidney disease, stage IV (severe) Current Visit: Yes Status: Acute Plan to address problem: Continue management (3) Hyponatremia Current Visit: Yes Status: Acute Plan to address problem: Follow-up sodium (4) HTN (hypertension) Current Visit: Yes Status: Chronic Qualifiers: Hypertension type: essential hypertension Qualified Code(s): I10 - Essential (primary) hypertension Plan to address problem: Follow-up blood pressure on current medications (5) Diabetic infection of left foot Current Visit: No Status: Acute Plan to address problem: Patient is status post left below the knee amputation and is undergoing rehabilitation (6) Type 2 diabetes mellitus with diabetic neuropathy Current Visit: Yes Status: Acute Plan to address problem: Blood sugar control by primary attending (7) Anemia in chronic kidney disease (CKD) Current Visit: Yes Status: Acute Plan to address problem: Follow-up hemoglobin. We need to consider erythropoietin is less than 9 g/dL and iron stores normal Subjective Date of service: 09/12/16 Principal diagnosis: left BKA Interval history: Patient seen lying in bed. She has no complaints. Denies shortness of breath, chest pain nausea or vomiting. Objective - Exam Narrative Exam: Morbidly obese middle-aged after medical female lying in bed in no acute distress CVS S1-S2 regular rate rhythm without murmur, rub or gallop Chest clear to auscultation Abdomen soft, obese, nontender no organomegaly no bruit bowel sounds present Extremities 2+ edema B/L Neuro awake, alert oriented x3 no gross deficit - Vital Signs Vital signs: Vital Signs - 12hr 09/12/16 09/12/16 08:49 10:00 Pulse Rate 59 L Blood Pressure 114/48 O2 Sat by Pulse 96 Oximetry - Lab 09/12/16 14:32 09/12/16 14:32 Most recent lab results Calcium 7.4 mg/dL (8.4-10.2) L 09/12/16 14:32 Phosphorus 5.7 mg/dL (2.5-4.5) H 09/10/16 04:15 Magnesium 1.8 mg/dL (1.7-2.3) 09/10/16 04:15
[2016-09-13] MEDS: APRESOLINE PO SCH ×3 (07:10→22:45)
[2016-09-13] MEDS: NOVOLOG SUB-Q SCH ×4 (07:30→23:25)
[2016-09-13 08:35] LABS: BUN/Creatinine Ratio 10.26; Calcium 7.4 mg/dL (8.4-10.2); Chloride 95.6 mmol/L (98-107); Potassium 4.3 mmol/L (3.6-5.0)
[2016-09-13] MEDS: NORVASC PO SCH (09:17)
[2016-09-13] MEDS: BABY ASPIRIN PO SCH (09:18)
[2016-09-13] MEDS: PROTONIX PO SCH (09:18)
[2016-09-13] MEDS: COREG PO SCH ×2 (09:18→23:05)
[2016-09-13] MEDS: HEPARIN SUB-Q SCH ×2 (09:19→22:10)
[2016-09-13] MEDS ORDERED: NACL 0.9% 1000 ML 100 ML IV PRN (09:44)
[2016-09-13] MEDS ORDERED: HEPARIN 10,000 UNITS/10 ML IV PRN (09:44)
--- NOTE | 2016-09-13 09:49 | Progress Note ---
Assessment and Plan - Patient Problems (1) Acute kidney failure with tubular necrosis Current Visit: Yes Status: Acute Plan to address problem: Kidney function still worsening and patient with significant edema. We'll go ahead and do dialysis today for fluid removal on solute clearance. Discussed with the patient importance of decreasing edema to actually help with wound healing also. Continue to monitor for renal recovery (2) Chronic kidney disease, stage IV (severe) Current Visit: Yes Status: Acute Plan to address problem: Continue management (3) Hyponatremia Current Visit: Yes Status: Acute Plan to address problem: Follow-up sodiumHypervolemic hyponatremia (4) HTN (hypertension) Current Visit: Yes Status: Chronic Qualifiers: Hypertension type: essential hypertension Qualified Code(s): I10 - Essential (primary) hypertension Plan to address problem: Follow-up blood pressure on current medications (5) Diabetic infection of left foot Current Visit: No Status: Acute Plan to address problem: Patient is status post left below the knee amputation and is undergoing rehabilitation (6) Type 2 diabetes mellitus with diabetic neuropathy Current Visit: Yes Status: Acute Plan to address problem: Blood sugar control by primary attending (7) Anemia in chronic kidney disease (CKD) Current Visit: Yes Status: Acute Plan to address problem: Give erythropoietin on dialysis Subjective Date of service: 09/13/16 Principal diagnosis: left BKA Interval history: Patient seen in the physical therapy department. She has no complaints other than not getting enough sleep last night. Her daughters were doing her hair. Denies shortness of breath, chest pain nausea or vomiting. Objective - Exam Narrative Exam: Morbidly obese middle-aged after medical female lying in bed in no acute distress CVS S1-S2 regular rate rhythm without murmur, rub or gallop Chest clear to auscultation Abdomen soft, obese, nontender no organomegaly no bruit bowel sounds present Extremities 2-3+ edema B/L Neuro awake, alert oriented x3 no gross deficit - Vital Signs Vital signs: Vital Signs - 12hr 09/12/16 09/12/16 09/13/16 22:00 23:02 07:00 Temperature 98.4 F Pulse Rate 60 Pulse Rate [ 86 62 Right Radial] Respiratory 16 20 Rate Blood Pressure 137/60 Blood Pressure 148/60 [Left Arm] O2 Sat by Pulse 96 Oximetry 09/13/16 09:17 Temperature Pulse Rate 62 Pulse Rate [ Right Radial] Respiratory Rate Blood Pressure 142/60 Blood Pressure [Left Arm] O2 Sat by Pulse Oximetry - Lab 09/12/16 14:32 09/13/16 07:42 Most recent lab results Calcium 7.4 mg/dL (8.4-10.2) L 09/13/16 07:42 Phosphorus 5.7 mg/dL (2.5-4.5) H 09/10/16 04:15 Magnesium 1.8 mg/dL (1.7-2.3) 09/10/16 04:15
--- NOTE | 2016-09-13 11:52 | Progress Note ---
Assessment and Plan 61 y.o. female s/p left BKA secondary to non-healing diabetic foot ulcer; post- op blood loss anemia, acute on chronic renal failure, gait dysfunction - s/p left BKA- [place] to LLE; pain well controlled; monitor for phantom pain; wound care - acute on chronic renal failure- Nephrology f/u appreciated. Cr. 3.8 today. patient is to get HD today. - HTN- stable on Norvasc and coreg - DM- stable on SSI; continue to hold home lantus - anemia- stable. Hb. 9.2. will get erythropoietin on HD - hyponatremia- hypervolemic hyponatremia. will get HD. - DVT px- heparin - D/C planning to SNF vs. home on 09/15/2016 - Patient Problems (1) Acute kidney failure with tubular necrosis Current Visit: Yes Status: Acute (2) Acute on chronic renal failure Current Visit: Yes Status: Acute (3) Amputation of left lower extremity below knee Current Visit: Yes Status: Acute (4) Anemia due to blood loss, acute Current Visit: Yes Status: Acute (5) Anemia in chronic kidney disease (CKD) Current Visit: Yes Status: Acute (6) Chronic kidney disease, stage IV (severe) Current Visit: Yes Status: Acute Subjective Date of service: 09/13/16 Principal diagnosis: left BKA Interval history: Patient seen and examined. Nephrology f/u appreciated. no N/V/C/D, PT/OT notes reviewed. Patient is to get HD today. Objective - Constitutional Vitals: Vital Signs - 12hr 09/13/16 09/13/16 07:00 09:17 Temperature 98.4 F Pulse Rate 62 Pulse Rate [ 62 Right Radial] Respiratory 20 Rate Blood Pressure 142/60 Blood Pressure 148/60 [Left Arm] O2 Sat by Pulse 96 Oximetry General appearance: Present: no acute distress - EENT Eyes: PERRL ENT: hearing intact - Respiratory Respiratory effort: normal Respiratory: bilateral: CTA - Breasts Breasts: deferred - Cardiovascular Rhythm: regular Heart Sounds: Present: S1 & S2 Extremities: no ischemia Extremity abnormal: edema - Gastrointestinal General gastrointestinal: Present: soft, non-tender, non-distended - Integumentary Integumentary: clear, warm, dry - Musculoskeletal Musculoskeletal: strength equal bilaterally, other (s/p left BKA. wound dressign intact. no discharge. no contracture) - Neurologic Neurologic: CNII-XII intact, no focal deficits - Psychiatric Psychiatric: appropriate mood/affect, intact judgment & insight - Allied health notes Allied health notes reviewed: nursing, PT, OT - Labs CBC & Chem 7: 09/12/16 14:32 09/13/16 07:42 Labs: Abnormal lab results 09/12/16 09/12/16 09/12/16 Range/Units 11:50 14:32 14:32 RBC 3.24 L (3.65-5.03) M/mm3 Hgb 9.2 L (10.1-14.3) gm/dl Hct 28.2 L (30.3-42.9) % Sodium 134 L (137-145) mmol/L Chloride 94.0 L (98-107) mmol/L BUN 37 H (7-17) mg/dL Creatinine 3.7 H (0.7-1.2) mg/dL Glucose 160 H (65-100) mg/dL POC Glucose 149 H (70-105) Calcium 7.4 L (8.4-10.2) mg/dL 09/12/16 09/12/16 09/13/16 Range/Units 16:15 22:02 06:48 RBC (3.65-5.03) M/mm3 Hgb (10.1-14.3) gm/dl Hct (30.3-42.9) % Sodium (137-145) mmol/L Chloride (98-107) mmol/L BUN (7-17) mg/dL Creatinine (0.7-1.2) mg/dL Glucose (65-100) mg/dL POC Glucose 157 H 152 H 125 H (70-105) Calcium (8.4-10.2) mg/dL 09/13/16 Range/Units 07:42 RBC (3.65-5.03) M/mm3 Hgb (10.1-14.3) gm/dl Hct (30.3-42.9) % Sodium 134 L (137-145) mmol/L Chloride 95.6 L (98-107) mmol/L BUN 39 H (7-17) mg/dL Creatinine 3.8 H (0.7-1.2) mg/dL Glucose 121 H (65-100) mg/dL POC Glucose (70-105) Calcium 7.4 L (8.4-10.2) mg/dL
[2016-09-13] MEDS ORDERED: NACL 0.9 (PRIMING MACHINE ONLY DIALYSIS) MC ONE (20:01)
[2016-09-14] MEDS: APRESOLINE PO SCH ×3 (06:15→22:22)
[2016-09-14] MEDS: NOVOLOG SUB-Q SCH ×4 (07:30→22:26)
--- NOTE | 2016-09-14 08:23 | Progress Note ---
Assessment and Plan - Patient Problems (1) Acute kidney failure with tubular necrosis Current Visit: Yes Status: Acute Plan to address problem: Patient received dialysis yesterday. Still significantly volume overloaded. We will start loop diuretic and then continue dialysis for now. Continue to monitor for renal recovery. [place] arrangements [place] [facility] [place] (2) Chronic kidney disease, stage IV (severe) Current Visit: Yes Status: Acute Plan to address problem: Continue management (3) Hyponatremia Current Visit: Yes Status: Acute Plan to address problem: Follow-up sodiumHypervolemic hyponatremia (4) HTN (hypertension) Current Visit: Yes Status: Chronic Qualifiers: Hypertension type: essential hypertension Qualified Code(s): I10 - Essential (primary) hypertension Plan to address problem: Follow-up blood pressure on current medications (5) Diabetic infection of left foot Current Visit: No Status: Acute Plan to address problem: Patient is status post left below the knee amputation and is undergoing rehabilitation (6) Type 2 diabetes mellitus with diabetic neuropathy Current Visit: Yes Status: Acute Plan to address problem: Blood sugar control by primary attending (7) Anemia in chronic kidney disease (CKD) Current Visit: Yes Status: Acute Plan to address problem: Give erythropoietin on dialysis Subjective Date of service: 09/14/16 Principal diagnosis: left BKA Interval history: Patient seen lying in bed. Feels better this morning. Denies shortness of breath, chest pain nausea or vomiting. Objective - Exam Narrative Exam: Morbidly obese middle-aged after medical female lying in bed in no acute distress CVS S1-S2 regular rate rhythm without murmur, rub or gallop Chest clear to auscultation Abdomen soft, obese, nontender no organomegaly no bruit bowel sounds present Extremities 2-3+ edema B/L Neuro awake, alert oriented x3 no gross deficit - Vital Signs Vital signs: Vital Signs - 12hr 09/13/16 09/13/16 09/13/16 20:30 20:45 21:00 Temperature Pulse Rate 60 59 L 55 L Pulse Rate [ Apical] Pulse Rate [ From Monitor] Respiratory Rate Blood Pressure 117/58 133/65 126/60 O2 Sat by Pulse Oximetry 09/13/16 09/13/16 09/13/16 21:15 21:30 21:45 Temperature Pulse Rate 59 L 60 59 L Pulse Rate [ Apical] Pulse Rate [ From Monitor] Respiratory Rate Blood Pressure 129/65 127/60 119/61 O2 Sat by Pulse Oximetry 09/13/16 09/13/16 22:00 23:00 Temperature 98.1 F Pulse Rate 58 L Pulse Rate [ 63 Apical] Pulse Rate [ 63 From Monitor] Respiratory 18 16 Rate Blood Pressure 135/67 O2 Sat by Pulse 96 Oximetry - Lab 09/12/16 14:32 09/13/16 07:42 Most recent lab results Calcium 7.4 mg/dL (8.4-10.2) L 09/13/16 07:42 Phosphorus 5.7 mg/dL (2.5-4.5) H 09/10/16 04:15 Magnesium 1.8 mg/dL (1.7-2.3) 09/10/16 04:15
[2016-09-14 09:12] LABS: BUN/Creatinine Ratio 9.31; Calcium 7.1 mg/dL (8.4-10.2); Chloride 99.2 mmol/L (98-107); Phosphorous 4.5 mg/dL (2.5-4.5); Potassium 3.8 mmol/L (3.6-5.0)
[2016-09-14] MEDS: HEPARIN SUB-Q SCH ×2 (09:52→22:21)
[2016-09-14] MEDS: COREG PO SCH ×2 (09:53→22:22)
[2016-09-14] MEDS: PROTONIX PO SCH (09:54)
[2016-09-14] MEDS: BABY ASPIRIN PO SCH (09:54)
[2016-09-14] MEDS: NORVASC PO SCH (09:54)
--- NOTE | 2016-09-14 10:24 | Progress Note ---
Assessment and Plan 61 y.o. female s/p left BKA secondary to non-healing diabetic foot ulcer; post- op blood loss anemia, acute on chronic renal failure, gait dysfunction. - s/p left BKA- wound OK. no flexion contracture. pain under control. - acute on chronic renal failure- HD done yesterday. Cr. went down to 2.9. but still volume overload. f/u with nephrology - HTN- stable on Norvasc and coreg - DM- stable on SSI. BS 120/126 - anemia- stable. Hb. 9.2. get erythropoietin on HD - hyponatremia- resolved after HD. 138 - DVT px- heparin - D/C planning to SNF on 09/15/2016. working on placement. - Patient Problems (1) Acute kidney failure with tubular necrosis Current Visit: Yes Status: Acute (2) Acute on chronic renal failure Current Visit: Yes Status: Acute (3) Amputation of left lower extremity below knee Current Visit: Yes Status: Acute (4) Anemia due to blood loss, acute Current Visit: Yes Status: Acute (5) Anemia in chronic kidney disease (CKD) Current Visit: Yes Status: Acute (6) Chronic kidney disease, stage IV (severe) Current Visit: Yes Status: Acute Subjective Date of service: 09/14/16 Principal diagnosis: left BKA Interval history: Patient seen and examined. HD done yesterda. no N/V/C/D, PT/OT notes reviewed. . Objective - Constitutional Vitals: Vital Signs - 12hr 09/13/16 09/14/16 09/14/16 23:00 08:00 09:53 Temperature 99.8 F H Pulse Rate 66 Pulse Rate [ 63 Apical] Pulse Rate [ 63 From Monitor] Pulse Rate [ 66 Left Radial] Respiratory 16 18 Rate Blood Pressure 148/68 Blood Pressure 148/68 [Left Arm] O2 Sat by Pulse 96 95 Oximetry General appearance: Present: no acute distress - EENT Eyes: PERRL ENT: hearing intact - Neck Neck: supple - Respiratory Respiratory effort: normal Respiratory: bilateral: CTA - Cardiovascular Rhythm: regular Heart Sounds: Present: S1 & S2 Extremities: no ischemia, pulses intact, abnormal (s/p left BKA. no knee contracture) Extremity abnormal: edema - Gastrointestinal General gastrointestinal: Present: soft, non-tender, non-distended, normal bowel sounds Rectal Exam: deferred - Musculoskeletal Musculoskeletal: generalized weakness - Allied health notes Allied health notes reviewed: nursing, PT, OT - Labs CBC & Chem 7: 09/12/16 14:32 09/14/16 08:25 Labs: Abnormal lab results 09/13/16 09/13/16 09/14/16 Range/Units 11:56 16:24 00:50 BUN (7-17) mg/dL Creatinine (0.7-1.2) mg/dL Glucose (65-100) mg/dL POC Glucose 145 H 209 H 120 H (70-105) Calcium (8.4-10.2) mg/dL 09/14/16 09/14/16 Range/Units 06:22 08:25 BUN 27 H (7-17) mg/dL Creatinine 2.9 H (0.7-1.2) mg/dL Glucose 106 H (65-100) mg/dL POC Glucose 126 H (70-105) Calcium 7.1 L (8.4-10.2) mg/dL
[2016-09-15 05:35] LABS: BUN/Creatinine Ratio 9.68; Calcium 7.3 mg/dL (8.4-10.2); Chloride 97.9 mmol/L (98-107)
[2016-09-15] MEDS: APRESOLINE PO SCH ×2 (06:19→14:54)
[2016-09-15] MEDS: BABY ASPIRIN PO SCH (09:16)
[2016-09-15] MEDS: PROTONIX PO SCH (09:17)
[2016-09-15] MEDS: LASIX PO SCH (09:17)
[2016-09-15] MEDS: NORVASC PO SCH (09:18)
[2016-09-15] MEDS: COREG PO SCH (09:18)
[2016-09-15] MEDS: NOVOLOG SUB-Q SCH ×3 (09:19→18:33)
[2016-09-15] MEDS: HEPARIN SUB-Q SCH (09:19)
--- NOTE | 2016-09-15 11:56 | Progress Note ---
Assessment and Plan 61 y.o. female s/p left BKA secondary to non-healing diabetic foot ulcer; post- op blood loss anemia, acute on chronic renal failure, gait dysfunction. - s/p left BKA- wound OK. no flexion contracture. pain under control. - acute on chronic renal failure- HD done yesterday. Cr. up again to 3.2. f/u with nephrology. Lasix added by nephrology. - HTN- stable on Norvasc and coreg/lasix - DM- stable on SSI. - anemia- stable. Hb. 9.2. get erythropoietin on HD - hyponatremia- resolved after HD. 138 - DVT px- heparin - D/C planning to SNF on 09/15/2016 or so. working on placement. - Patient Problems (1) Acute kidney failure with tubular necrosis Current Visit: Yes Status: Acute (2) Acute on chronic renal failure Current Visit: Yes Status: Acute (3) Amputation of left lower extremity below knee Current Visit: Yes Status: Acute (4) Anemia due to blood loss, acute Current Visit: Yes Status: Acute (5) Anemia in chronic kidney disease (CKD) Current Visit: Yes Status: Acute (6) Chronic kidney disease, stage IV (severe) Current Visit: Yes Status: Acute Subjective Date of service: 09/15/16 Principal diagnosis: left BKA Interval history: Patient seen and examined. no N/V/C/D, PT/OT notes reviewed. Nephrology f/u appreciated. Objective - Constitutional Vitals: Vital Signs - 12hr 09/15/16 09/15/16 08:00 09:18 Temperature 98.3 F Pulse Rate 60 Pulse Rate [ 60 Left Radial] Respiratory 20 Rate Blood Pressure 144/64 Blood Pressure 144/64 [Left Arm] O2 Sat by Pulse 94 Oximetry General appearance: Present: no acute distress - EENT Eyes: PERRL ENT: hearing intact - Neck Neck: supple - Respiratory Respiratory effort: normal Respiratory: bilateral: CTA, negative: rales, rhonchi, wheezing - Cardiovascular Rhythm: regular Heart Sounds: Present: S1 & S2 Extremities: no ischemia, pulses intact - Gastrointestinal General gastrointestinal: Present: soft, non-tender, non-distended Rectal Exam: deferred - Integumentary Integumentary: clear, warm, dry - Musculoskeletal Musculoskeletal: strength equal bilaterally, other (s/p left BKA, wound intact. ROM 0-90 degrees. no flexion contracture) - Neurologic Neurologic: CNII-XII intact, no focal deficits - Psychiatric Psychiatric: appropriate mood/affect, intact judgment & insight - Allied health notes Allied health notes reviewed: nursing, PT, OT - Labs CBC & Chem 7: 09/12/16 14:32 09/15/16 04:36 Labs: Abnormal lab results 09/14/16 09/14/16 09/15/16 Range/Units 12:33 21:21 04:36 Chloride 97.9 L (98-107) mmol/L BUN 31 H (7-17) mg/dL Creatinine 3.2 H (0.7-1.2) mg/dL Glucose 121 H (65-100) mg/dL POC Glucose 186 H 148 H (70-105) Calcium 7.3 L (8.4-10.2) mg/dL 09/15/16 Range/Units 08:33 Chloride (98-107) mmol/L BUN (7-17) mg/dL Creatinine (0.7-1.2) mg/dL Glucose (65-100) mg/dL POC Glucose 123 H (70-105) Calcium (8.4-10.2) mg/dL
--- NOTE | 2016-09-15 15:32 | Event Note ---
Date: 09/15/16 61 year old female with vascath who is dialysis dependent. Needs conversion to permcath. Contacted by Dr. Flores earlier and he told patient not to eat or drink. Unfortunately, patient ate. NPO after MN. Plan for vas to permcath in the AM. Discussed with the nurse.
--- NOTE | 2016-09-15 16:45 | Progress Note ---
Assessment and Plan - Patient Problems (1) Acute kidney failure with tubular necrosis Current Visit: Yes Status: Acute Plan to address problem: Patient received dialysis yesterday. Still significantly volume overloaded. We will start loop diuretic and then continue dialysis for now. Continue to monitor for renal recovery. Make arrangements for outpatient dialysis at [facility] [place] keep NPO and consult Vascular to change Vascath to Permacath (2) Chronic kidney disease, stage IV (severe) Current Visit: Yes Status: Acute Plan to address problem: Continue management (3) Hyponatremia Current Visit: Yes Status: Acute Plan to address problem: Follow-up sodiumHypervolemic hyponatremia (4) HTN (hypertension) Current Visit: Yes Status: Chronic Qualifiers: Hypertension type: essential hypertension Qualified Code(s): I10 - Essential (primary) hypertension Plan to address problem: Follow-up blood pressure on current medications (5) Diabetic infection of left foot Current Visit: No Status: Acute Plan to address problem: Patient is status post left below the knee amputation and is undergoing rehabilitation (6) Type 2 diabetes mellitus with diabetic neuropathy Current Visit: Yes Status: Acute Plan to address problem: Blood sugar control by primary attending (7) Anemia in chronic kidney disease (CKD) Current Visit: Yes Status: Acute Plan to address problem: Give erythropoietin on dialysis Subjective Date of service: 09/15/16 Principal diagnosis: left BKA Interval history: Patient seen lying in bed this morning.No C/o. Denies shortness of breath, chest pain nausea or vomiting. Objective - Exam Narrative Exam: Morbidly obese middle-aged after medical female lying in bed in no acute distress CVS S1-S2 regular rate rhythm without murmur, rub or gallop Chest clear to auscultation Abdomen soft, obese, nontender no organomegaly no bruit bowel sounds present Extremities 2+ edema B/L Neuro awake, alert oriented x3 no gross deficit - Vital Signs Vital signs: Vital Signs - 12hr 09/15/16 09/15/16 08:00 09:18 Temperature 98.3 F Pulse Rate 60 Pulse Rate [ 60 Left Radial] Respiratory 20 Rate Blood Pressure 144/64 Blood Pressure 144/64 [Left Arm] O2 Sat by Pulse 94 Oximetry - Lab 09/12/16 14:32 09/15/16 04:36 Most recent lab results Calcium 7.3 mg/dL (8.4-10.2) L 09/15/16 04:36 Phosphorus 4.5 mg/dL (2.5-4.5) 09/14/16 08:25 Magnesium 1.8 mg/dL (1.7-2.3) 09/10/16 04:15
[2016-09-15] MEDS ORDERED: HEPARIN 10,000 UNITS/10 ML IV PRN (22:50)
[2016-09-15] MEDS: HEPARIN IV PRN (23:16)
[2016-09-16] MEDS: NOVOLOG SUB-Q SCH ×4 (09:33→23:08)
[2016-09-16] MEDS ORDERED: HEPARIN 10,000 UNITS/10 ML ONE (09:35)
[2016-09-16] MEDS ORDERED: XYLOCAINE 1%/ EPI 1:100,000 INFILTRATI ONE (09:35)
[2016-09-16] MEDS ORDERED: HEPARIN/NS 5000 UNIT/500ML(CATH LAB) 500 ML IR ONE (09:35)
[2016-09-16] MEDS ORDERED: ANCEF/STERILE WATER 2 GM/20 ML 20 ML IV ONE (09:36)
[2016-09-16] MEDS ORDERED: NACL 0.9% 250ML 0 ML ONE (09:36)
[2016-09-16] MEDS ORDERED: VERSED ONE (09:58)
[2016-09-16] MEDS ORDERED: SUBLIMAZE ONE (09:58)
--- NOTE | 2016-09-16 10:40 | Operative Report ---
Operative Report Operative Report: EXAM: 1. Fluoroscopic-guided conversion of a right internal jugular non-tunneled non- cuffed hemodialysis catheter to a tunneled cuffed hemodialysis catheter. DATE: 09/16/16 INDICATION: End-stage renal disease requiring hemodialysis access. MEDICATIONS: Please see nursing report for full details. DEVICES: 23 cm tip to cuff dual lumen hemodialysis catheter CHANNEL WORKER: BRADLEY GUEVARA MD CONTRAST: None PROCEDURE: The risks, benefits, and alternatives were discussed and informed consent was obtained. The patient was transported to the angiography suite in satisfactory/ stable condition and was transported onto the angiography table. The patient was prepped and draped in a sterile fashion. The existing vascath was prepped and draped in a sterile fashion. Suture was cut. 0.035 inch wire was advanced through the Vas-Cath into the IVC. Vas-Cath was removed. The wire was cleaned with ChloraPrep. Over the 0.035 inch wire, serial dilatation was performed with ultimate placement of a peel-away sheath. Reverse tunneled PermCath was inserted to the peel-away sheath and positioned in the right atrium. Peel-away sheath removed. A suitable exit site was identified on the patient's chest inferior and lateral to the venotomy. The site was anesthetized with local anesthetic and the track was anesthetized. Dermatotomy was made. Reverse tunneler was then tunneled from dermatotomy to the venotomy site/catheter. The PermCath was attached to the tunneling device and reverse tunneled between the dermatotomy to the venotomy. The catheter was reassembled. 4-0 Vicryl suture was used to close the venotomy and Dermabond was then applied. 2-0 Ethilon suture was used to secure the catheter at the dermatotomy. The catheter was charged with heparin 1000 units/mL space. The patient was transferred from the angiography suite back to the floor in stable condition. FINDINGS: 1. Excellent flow was obtained through the dialysis catheter with 20 mL syringes. 2. The catheter tip is in the right atrium. IMPRESSION: 1. Fluoroscopic-guided conversion of a right internal jugular non-tunneled non- cuffed hemodialysis catheter to a tunneled cuffed hemodialysis catheter.
--- NOTE | 2016-09-16 11:07 | Progress Note ---
Assessment and Plan 61 y.o. female s/p left BKA secondary to non-healing diabetic foot ulcer; post- op blood loss anemia, acute on chronic renal failure, gait dysfunction. - s/p left BKA- wound OK. no flexion contracture. pain under control. - acute on chronic renal failure- on HD. Cr. up again to 3.2. on lasix. Permacath placement done - HTN- stable on Norvasc and coreg/lasix - DM- stable on SSI. - anemia- stable. Hb. 9.2. get erythropoietin on HD - hyponatremia- resolved after HD. 138 - DVT px- heparin - D/C planning to SNF. working on placement. - Patient Problems (1) Acute kidney failure with tubular necrosis Current Visit: Yes Status: Acute (2) Acute on chronic renal failure Current Visit: Yes Status: Acute (3) Amputation of left lower extremity below knee Current Visit: Yes Status: Acute (4) Anemia due to blood loss, acute Current Visit: Yes Status: Acute (5) Anemia in chronic kidney disease (CKD) Current Visit: Yes Status: Acute (6) Chronic kidney disease, stage IV (severe) Current Visit: Yes Status: Acute Subjective Date of service: 09/16/16 Principal diagnosis: left BKA Interval history: Patient seen and examined. no N/V/C/D, PT/OT notes reviewed. Nephrology f/u appreciated. she just got Permacath placement. Objective - Constitutional Vitals: Vital Signs - 12hr 09/16/16 07:30 Temperature 99.0 F Pulse Rate [ 65 Left Radial] Respiratory 20 Rate Blood Pressure 149/68 [Left Arm] General appearance: Present: no acute distress - EENT Eyes: PERRL ENT: hearing intact - Neck Neck: supple - Respiratory Respiratory effort: normal Respiratory: bilateral: CTA - Cardiovascular Rhythm: regular Heart Sounds: Present: S1 & S2 Extremities: no ischemia, abnormal (s/p left BKA) - Gastrointestinal General gastrointestinal: Present: soft, non-tender Rectal Exam: deferred - Integumentary Integumentary: clear, warm, dry - Musculoskeletal Musculoskeletal: strength equal bilaterally - Neurologic Neurologic: CNII-XII intact, no focal deficits - Psychiatric Psychiatric: appropriate mood/affect, intact judgment & insight - Allied health notes Allied health notes reviewed: nursing, PT, OT - Labs CBC & Chem 7: 09/12/16 14:32 09/15/16 04:36 Labs: Abnormal lab results 09/15/16 09/15/16 Range/Units 12:16 17:55 POC Glucose 133 H 201 H (70-105)
[2016-09-16] MEDS: HEPARIN SUB-Q SCH ×2 (11:09→22:00)
[2016-09-16] MEDS: LASIX PO SCH (11:10)
[2016-09-16] MEDS: COREG PO SCH ×2 (11:37→23:07)
[2016-09-16] MEDS: PROTONIX PO SCH (11:37)
[2016-09-16] MEDS: APRESOLINE PO SCH ×3 (11:38→23:08)
[2016-09-16] MEDS: BABY ASPIRIN PO SCH (11:40)
[2016-09-16] MEDS: NORVASC PO SCH (12:34)
--- NOTE | 2016-09-16 13:44 | Progress Note ---
Assessment and Plan - Patient Problems (1) Acute kidney failure with tubular necrosis Current Visit: Yes Status: Acute Plan to address problem: Patient received dialysis yesterday. Still significantly volume overloaded. cotninue diuresis with lasix 80mgpo qd along with HD M/W/F schedule until signficant renal recovery is seen. Made arrangements for outpatient dialysis at [facility], stable for discharge from renal stand point, now that pt received permcath. . (2) Chronic kidney disease, stage IV (severe) Current Visit: Yes Status: Acute Plan to address problem: likely due to underlying diabetic nephropathy/hypertensive nephrosclerosis. cont current management (3) Hyponatremia Current Visit: Yes Status: Acute Plan to address problem: improved on HD, continue Na and fluid restriction (4) HTN (hypertension) Current Visit: Yes Status: Chronic Qualifiers: Hypertension type: essential hypertension Qualified Code(s): I10 - Essential (primary) hypertension Plan to address problem: volume overload contributing to increased BP, continue lasix 80mg po qd, will adjust UF as tolerated. (5) Amputation of left lower extremity below knee Current Visit: Yes Status: Acute Subjective Date of service: 09/16/16 Principal diagnosis: left BKA Interval history: Patient awake alert, in NAD, s/p permcath this AM Objective - Vital Signs Vital signs: Vital Signs - 12hr 09/16/16 09/16/16 09/16/16 07:30 11:37 12:34 Temperature 99.0 F Pulse Rate 62 66 Pulse Rate [ 65 Left Radial] Respiratory 20 Rate Blood Pressure 140/66 162/80 Blood Pressure 149/68 [Left Arm] - General Appearance General appearance: well-developed, well-nourished, obese, chronically ill EENT: ATNC, PERRL, mucous membranes moist Neck: no JVD Respiratory: Present: Clear to Ascultation Cardiology: regular, S1S2 Gastrointestinal: normal, obese Integumentary: no rash, other (++ edema b/l LE, s/p LE BKA) Neurologic: no focal deficit, alert and oriented x3, strength 5/5, CN 3-12 intact Psychiatric: mood/affect appropriate, cooperative - Lab 09/12/16 14:32 09/15/16 04:36 Most recent lab results Calcium 7.3 mg/dL (8.4-10.2) L 09/15/16 04:36 Phosphorus 4.5 mg/dL (2.5-4.5) 09/14/16 08:25 Magnesium 1.8 mg/dL (1.7-2.3) 09/10/16 04:15
[2016-09-17 04:48] LABS: BUN/Creatinine Ratio 8.84; Calcium 7.7 mg/dL (8.4-10.2); Chloride 97.2 mmol/L (98-107); Potassium 3.6 mmol/L (3.6-5.0)
[2016-09-17] MEDS: APRESOLINE PO SCH ×3 (06:39→22:29)
[2016-09-17] MEDS: NOVOLOG SUB-Q SCH ×3 (08:00→16:59)
[2016-09-17] MEDS ORDERED: NACL 0.9% 1000 ML 100 ML IV PRN (08:08)
--- NOTE | 2016-09-17 08:08 | Progress Note ---
Assessment and Plan - Patient Problems (1) Acute kidney failure with tubular necrosis Current Visit: Yes Status: Acute Plan to address problem: continue diuresis with lasix 80mgpo qd along with HD M/W/F schedule until signficant renal recovery is seen. Made arrangements for outpatient dialysis at [facility], stable for discharge from renal stand point, now that pt received permcath. (2) Chronic kidney disease, stage IV (severe) Current Visit: Yes Status: Acute Plan to address problem: likely due to underlying diabetic nephropathy/hypertensive nephrosclerosis. cont current management (3) Hyponatremia Current Visit: Yes Status: Acute Plan to address problem: improved on HD, continue Na and fluid restriction (4) HTN (hypertension) Current Visit: Yes Status: Chronic Qualifiers: Hypertension type: essential hypertension Qualified Code(s): I10 - Essential (primary) hypertension Plan to address problem: volume overload contributing to increased BP, continue lasix 80mg po qd, will adjust UF as tolerated. (5) Amputation of left lower extremity below knee Current Visit: Yes Status: Acute Subjective Date of service: 09/17/16 Principal diagnosis: left BKA Interval history: Patient awake, alert, in NAD Objective - Vital Signs Vital signs: Vital Signs - 12hr 09/16/16 09/16/16 22:00 23:07 Pulse Rate 66 Pulse Rate [ 66 Apical] Respiratory 18 Rate Blood Pressure 146/70 - General Appearance General appearance: well-developed, well-nourished, obese EENT: ATNC, PERRL, mucous membranes moist Neck: no JVD Respiratory: Present: Clear to Ascultation Cardiology: regular, S1S2 Gastrointestinal: normal Integumentary: no rash, other (L BKA, 2+ b/l LE edema ) Neurologic: no focal deficit, alert and oriented x3, strength 5/5, CN 3-12 intact Psychiatric: mood/affect appropriate, cooperative - Lab 09/12/16 14:32 09/17/16 04:15 Most recent lab results Calcium 7.7 mg/dL (8.4-10.2) L 09/17/16 04:15 Phosphorus 4.5 mg/dL (2.5-4.5) 09/14/16 08:25 Magnesium 1.8 mg/dL (1.7-2.3) 09/10/16 04:15
--- NOTE | 2016-09-17 08:37 | Progress Note ---
Assessment and Plan 61 y.o. female s/p left BKA secondary to non-healing diabetic foot ulcer; post- op blood loss anemia, acute on chronic renal failure, gait dysfunction. Nephrology f/u appreciated. - s/p left BKA- wound OK. no flexion contracture. pain under control. - acute on chronic renal failure- on HD. Cr. down to 2.6 on lasix. Permacath placement done . Nephrology recommends HD on M/W/F. - HTN- stable on Norvasc and coreg/lasix - DM- stable on SSI. - anemia- stable. Hb. 9.2. get erythropoietin on HD - hyponatremia- resolved after HD. 138 - DVT px- heparin - D/C planning to SNF. working on placement. - Patient Problems (1) Acute kidney failure with tubular necrosis Current Visit: Yes Status: Acute (2) Acute on chronic renal failure Current Visit: Yes Status: Acute (3) Amputation of left lower extremity below knee Current Visit: Yes Status: Acute (4) Anemia due to blood loss, acute Current Visit: Yes Status: Acute (5) Anemia in chronic kidney disease (CKD) Current Visit: Yes Status: Acute (6) Chronic kidney disease, stage IV (severe) Current Visit: Yes Status: Acute Subjective Date of service: 09/17/16 Principal diagnosis: left BKA Interval history: Patient seen and examined. no N/V/C/D, PT/OT notes reviewed. Nephrology f/u appreciated. she got Permacath placement. Objective - Constitutional Vitals: Vital Signs - 12hr 09/16/16 09/16/16 09/17/16 22:00 23:07 08:23 Temperature 98.4 F Pulse Rate 66 Pulse Rate [ 66 Apical] Pulse Rate [ 65 Right Dorsalis Pedis] Respiratory 18 20 Rate Blood Pressure 146/70 Blood Pressure 139/60 [Left Arm] O2 Sat by Pulse 96 Oximetry General appearance: Present: no acute distress - EENT Eyes: PERRL ENT: hearing intact - Neck Neck: supple - Respiratory Respiratory effort: normal Respiratory: bilateral: CTA - Cardiovascular Rhythm: regular Heart Sounds: Present: S1 & S2 Extremities: no ischemia Extremity abnormal: edema - Gastrointestinal General gastrointestinal: Present: soft, non-tender, non-distended - Genitourinary Female genitourinary: deferred - Integumentary Integumentary: clear, warm, dry - Musculoskeletal Musculoskeletal: other (s/p right BKA- wound dressing intact.) - Neurologic Neurologic: CNII-XII intact, no focal deficits - Psychiatric Psychiatric: appropriate mood/affect, intact judgment & insight - Allied health notes Allied health notes reviewed: nursing, PT, OT - Labs CBC & Chem 7: 09/12/16 14:32 09/17/16 04:15 Labs: Abnormal lab results 09/16/16 09/16/16 09/16/16 Range/Units 12:01 16:53 21:42 Chloride (98-107) mmol/L BUN (7-17) mg/dL Creatinine (0.7-1.2) mg/dL Glucose (65-100) mg/dL POC Glucose 125 H 140 H 191 H (70-105) Calcium (8.4-10.2) mg/dL 09/17/16 09/17/16 Range/Units 04:15 06:16 Chloride 97.2 L (98-107) mmol/L BUN 23 H (7-17) mg/dL Creatinine 2.6 H (0.7-1.2) mg/dL Glucose 122 H (65-100) mg/dL POC Glucose 115 H (70-105) Calcium 7.7 L (8.4-10.2) mg/dL
[2016-09-17] MEDS: HEPARIN SUB-Q SCH ×2 (09:47→22:47)
[2016-09-17] MEDS: LASIX PO SCH (09:51)
[2016-09-17] MEDS: PROTONIX PO SCH (09:52)
[2016-09-17] MEDS: BABY ASPIRIN PO SCH (09:52)
[2016-09-17] MEDS: NORVASC PO SCH (09:52)
[2016-09-17] MEDS: COREG PO SCH ×2 (09:54→22:28)
[2016-09-18] MEDS: APRESOLINE PO SCH ×3 (06:33→22:37)
[2016-09-18 06:47] LABS: BUN/Creatinine Ratio 8.66; Calcium 7.8 mg/dL (8.4-10.2); Chloride 97.3 mmol/L (98-107); Potassium 3.6 mmol/L (3.6-5.0)
--- NOTE | 2016-09-18 09:20 | Progress Note ---
Assessment and Plan - Patient Problems (1) Acute kidney failure with tubular necrosis Current Visit: Yes Status: Acute Plan to address problem: continue diuresis with lasix 80mg po qd along with HD M/W/F schedule for volume control/solute clearance until signficant renal recovery is seen. Made arrangements for outpatient dialysis at [facility], stable for discharge from renal stand point (2) Chronic kidney disease, stage IV (severe) Current Visit: Yes Status: Acute Plan to address problem: likely due to underlying diabetic nephropathy/hypertensive nephrosclerosis. cont current management (3) Hyponatremia Current Visit: Yes Status: Acute Plan to address problem: resolved with HD (4) HTN (hypertension) Current Visit: Yes Status: Chronic Qualifiers: Hypertension type: essential hypertension Qualified Code(s): I10 - Essential (primary) hypertension Plan to address problem: volume overload contributing to increased BP, continue lasix 80mg po qd, will adjust UF as tolerated. (5) Amputation of left lower extremity below knee Current Visit: Yes Status: Acute Subjective Date of service: 09/18/16 Principal diagnosis: left BKA Interval history: Patient awake, alert, in NAD Objective - Vital Signs Vital signs: Vital Signs - 12hr 09/17/16 22:28 Pulse Rate 62 Blood Pressure 136/66 - General Appearance General appearance: well-developed, well-nourished, appears stated age, obese EENT: ATNC, PERRL, mucous membranes moist Neck: no JVD Respiratory: Present: Clear to Ascultation Cardiology: regular, S1S2 Gastrointestinal: normal, normoactive bowel sounds Integumentary: no rash, other (+2 edema b/l LE) Neurologic: no focal deficit, alert and oriented x3, strength 5/5, CN 3-12 intact Psychiatric: mood/affect appropriate, cooperative - Lab 09/12/16 14:32 09/18/16 05:18 Most recent lab results Calcium 7.8 mg/dL (8.4-10.2) L 09/18/16 05:18 Phosphorus 4.5 mg/dL (2.5-4.5) 09/14/16 08:25 Magnesium 1.8 mg/dL (1.7-2.3) 09/10/16 04:15
[2016-09-18] MEDS: BABY ASPIRIN PO SCH (09:22)
[2016-09-18] MEDS: PROTONIX PO SCH (09:23)
[2016-09-18] MEDS: HEPARIN SUB-Q SCH ×3 (09:23→22:02)
[2016-09-18] MEDS: NOVOLOG SUB-Q SCH ×4 (09:25→23:04)
[2016-09-18] MEDS: COREG PO SCH ×2 (09:25→21:55)
[2016-09-18] MEDS: NORVASC PO SCH (09:26)
[2016-09-18] MEDS: LASIX PO SCH (12:42)
--- NOTE | 2016-09-18 13:28 | Progress Note ---
Assessment and Plan 61 y.o. female s/p left BKA secondary to non-healing diabetic foot ulcer; post- op blood loss anemia, acute on chronic renal failure, gait dysfunction - s/p left BKA- [place] to LLE; pain well controlled; wound care - acute on chronic renal failure- restarted on HD since admission; will need ongoing dialysis MWF - HTN- remains stable on Norvasc and coreg - DM- only requiring minimal coverage on SSI; continue to hold home lantus - DVT px- heparin - pending placement in SNF; pt slow to progress during acute rehab course; continues to have significant difficulty with transfers; unsafe to return home independently - Patient Problems (1) Amputation of left lower extremity below knee Current Visit: Yes Status: Acute (2) Diabetic infection of left foot Current Visit: No Status: Acute (3) Acute on chronic renal failure Current Visit: Yes Status: Acute (4) HTN (hypertension) Current Visit: Yes Status: Chronic Qualifiers: Hypertension type: essential hypertension Qualified Code(s): I10 - Essential (primary) hypertension (5) Anemia due to blood loss, acute Current Visit: Yes Status: Acute (6) Diabetes Current Visit: Yes Status: Chronic Qualifiers: Diabetes mellitus type: type 2 Diabetes mellitus complication status: with neurologic complications Diabetes mellitus complication detail: with polyneuropathy 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 Reports occasional "phantom itching" at left residual limb; otherwise, no new complaints Objective - Constitutional Vitals: Vital Signs - 12hr 09/18/16 09/18/16 08:00 09:25 Temperature 98.3 F Pulse Rate 61 Pulse Rate [ 61 Right Dorsalis Pedis] Respiratory 16 Rate Blood Pressure 140/64 Blood Pressure 140/64 [Left Arm] O2 Sat by Pulse 100 Oximetry General appearance: Present: no acute distress, obese - EENT Eyes: EOM intact ENT: hearing intact - Neck Neck: supple, normal ROM - Respiratory Respiratory effort: normal Respiratory: bilateral: CTA - Cardiovascular Rhythm: regular Heart Sounds: Present: S1 & S2 Extremity abnormal: other ([place] to LLE) - Gastrointestinal General gastrointestinal: Present: soft, non-tender, non-distended, normal bowel sounds - Neurologic Neurologic: CNII-XII intact, moves all extremities - Psychiatric Psychiatric: appropriate mood/affect, cooperative - Allied health notes Allied health notes reviewed: PT (mod-maxA for transfers; no gait; Jenny for WC mobility), OT (Independent to maxA for ADLs) - Labs CBC & Chem 7: 09/12/16 14:32 09/18/16 05:18 Labs: Abnormal lab results 09/17/16 09/17/16 09/18/16 Range/Units 16:43 21:30 05:17 Chloride (98-107) mmol/L BUN (7-17) mg/dL Creatinine (0.7-1.2) mg/dL Glucose (65-100) mg/dL POC Glucose 126 H 179 H 121 H (70-105) Calcium (8.4-10.2) mg/dL 09/18/16 09/18/16 Range/Units 05:18 11:56 Chloride 97.3 L (98-107) mmol/L BUN 26 H (7-17) mg/dL Creatinine 3.0 H (0.7-1.2) mg/dL Glucose 121 H (65-100) mg/dL POC Glucose 154 H (70-105) Calcium 7.8 L (8.4-10.2) mg/dL
[2016-09-18] MEDS: HEPARIN IV PRN (19:56)
[2016-09-19] MEDS: NOVOLOG SUB-Q SCH ×4 (08:39→23:28)
[2016-09-19] MEDS: LASIX PO SCH (08:59)
[2016-09-19] MEDS: APRESOLINE PO SCH ×4 (08:59→23:27)
[2016-09-19] MEDS: COREG PO SCH ×3 (08:59→23:27)
[2016-09-19] MEDS: PROTONIX PO SCH (09:00)
[2016-09-19] MEDS: BABY ASPIRIN PO SCH (09:00)
[2016-09-19] MEDS: NORVASC PO SCH (09:00)
[2016-09-19] MEDS: HEPARIN SUB-Q SCH ×2 (09:01→23:33)
--- NOTE | 2016-09-19 11:17 | Progress Note ---
Assessment and Plan - Patient Problems (1) Acute kidney failure with tubular necrosis Current Visit: Yes Status: Acute Plan to address problem: continue intermittent HD on // schedule for volume control/solute clearance along with diuresis with lasix 80mg po qd. Made arrangements for outpatient dialysis at [facility]. (2) Chronic kidney disease, stage IV (severe) Current Visit: Yes Status: Acute Plan to address problem: likely due to underlying diabetic nephropathy/hypertensive nephrosclerosis. cont current management (3) Hyponatremia Current Visit: Yes Status: Acute Plan to address problem: resolved with HD (4) HTN (hypertension) Current Visit: Yes Status: Chronic Qualifiers: Hypertension type: essential hypertension Qualified Code(s): I10 - Essential (primary) hypertension Plan to address problem: volume overload contributing to increased BP, continue lasix 80mg po qd, will adjust UF as tolerated. (5) Amputation of left lower extremity below knee Current Visit: Yes Status: Acute Subjective Date of service: 09/19/16 Principal diagnosis: left BKA Interval history: patient seen and examined during PT, feeling well, no acute complaints. Objective - Vital Signs Vital signs: Vital Signs - 12hr 09/19/16 09/19/16 08:59 09:00 Temperature 99.2 F Pulse Rate 63 Pulse Rate [ 63 Left Brachial] Respiratory 20 Rate Blood Pressure 147/68 Blood Pressure 147/68 [Left Arm] O2 Sat by Pulse 94 Oximetry - General Appearance General appearance: well-developed, well-nourished, appears stated age, obese EENT: ATNC, PERRL, mucous membranes moist Neck: no JVD Respiratory: Present: Clear to Ascultation Cardiology: regular, S1S2 Gastrointestinal: normal, normoactive bowel sounds, obese Integumentary: no rash, other (++ edema / L BKA) Neurologic: no focal deficit, alert and oriented x3, strength 5/5, CN 3-12 intact Psychiatric: mood/affect appropriate, cooperative - Lab 09/12/16 14:32 09/18/16 05:18 Most recent lab results Calcium 7.8 mg/dL (8.4-10.2) L 09/18/16 05:18 Phosphorus 4.5 mg/dL (2.5-4.5) 09/14/16 08:25 Magnesium 1.8 mg/dL (1.7-2.3) 09/10/16 04:15
--- NOTE | 2016-09-19 15:18 | Progress Note ---
Assessment and Plan 61 y.o. female s/p left BKA secondary to non-healing diabetic foot ulcer; post- op blood loss anemia, acute on chronic renal failure, gait dysfunction - s/p left BKA- [place] to LLE; pain well controlled; wound care - acute on chronic renal failure- case discussed with Nephrology; will continue to require HD MWF - HTN- remains stable on Norvasc and coreg - DM- only requiring minimal coverage on SSI; continue to hold home lantus - DVT px- heparin - team conference held on today- pt is independent with eating; Jenny for grooming; SBA for bathing; S/U for UB Dressing; Claire for LB dressing and bed mobility; maxA for toileting, toilet transfers, shower transfers; total A for bed/chair/WC mobility; Jenny for WC mobility; non-ambulatory. Barriers- RLE weakness, difficulty with transfers and minimal standing balance. Pt has been slow to progress with improving functional independence; decreased po intake, will add glucerna; generalized fatigue likely worsened due to being new on HD. Pt is recommended for SNF plaement, pending outpt HD - Patient Problems (1) Amputation of left lower extremity below knee Current Visit: Yes Status: Acute (2) Diabetic infection of left foot Current Visit: No Status: Acute (3) Acute on chronic renal failure Current Visit: Yes Status: Acute (4) HTN (hypertension) Current Visit: Yes Status: Chronic Qualifiers: Hypertension type: essential hypertension Qualified Code(s): I10 - Essential (primary) hypertension (5) Anemia due to blood loss, acute Current Visit: Yes Status: Acute (6) Diabetes Current Visit: Yes Status: Chronic Qualifiers: Diabetes mellitus type: type 2 Diabetes mellitus complication status: with neurologic complications Diabetes mellitus complication detail: with polyneuropathy 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 reports generalized fatigue due to difficulty sleeping and hemodialysis Objective - Constitutional Vitals: Vital Signs - 12hr 09/19/16 09/19/16 09/19/16 08:59 09:00 10:00 Temperature 99.2 F Pulse Rate 63 Pulse Rate [ 63 63 Left Brachial] Respiratory 20 20 Rate Blood Pressure 147/68 Blood Pressure 147/68 [Left Arm] O2 Sat by Pulse 94 94 Oximetry 09/19/16 14:46 Temperature 97.7 F Pulse Rate Pulse Rate [ 62 Left Brachial] Respiratory 20 Rate Blood Pressure Blood Pressure 133/61 [Left Arm] O2 Sat by Pulse 95 Oximetry General appearance: Present: no acute distress, obese - EENT Eyes: EOM intact ENT: hearing intact - Neck Neck: supple - Respiratory Respiratory effort: normal Extremity abnormal: other (left BKA) - Musculoskeletal Musculoskeletal: generalized weakness - Neurologic Neurologic: CNII-XII intact - Psychiatric Psychiatric: appropriate mood/affect, cooperative - Labs CBC & Chem 7: 09/12/16 14:32 09/18/16 05:18 Labs: Abnormal lab results 09/18/16 09/18/16 09/19/16 Range/Units 15:59 21:33 06:59 POC Glucose 186 H 160 H 117 H (70-105)
[2016-09-20] MEDS: PROTONIX PO SCH (09:25)
[2016-09-20] MEDS: LASIX PO SCH (09:25)
[2016-09-20] MEDS: COREG PO SCH (09:26)
[2016-09-20] MEDS: NOVOLOG SUB-Q SCH ×3 (09:26→16:30)
[2016-09-20] MEDS: NORVASC PO SCH (09:26)
[2016-09-20] MEDS: BABY ASPIRIN PO SCH (09:26)
[2016-09-20] MEDS: HEPARIN SUB-Q SCH (09:28)
--- NOTE | 2016-09-20 10:06 | Progress Note ---
Assessment and Plan - Patient Problems (1) Acute kidney failure with tubular necrosis Current Visit: Yes Status: Acute Plan to address problem: continue intermittent HD on M/W/F schedule for volume control/solute clearance along with diuresis with lasix 80mg po qd. Made arrangements for outpatient dialysis at [facility]; with recent medicare policy change placement to outpatient HD clinic for ARF should be covered. Please f/u with case management. (2) Chronic kidney disease, stage IV (severe) Current Visit: Yes Status: Acute Plan to address problem: likely due to underlying diabetic nephropathy/hypertensive nephrosclerosis. cont current management (3) Hyponatremia Current Visit: Yes Status: Acute Plan to address problem: resolved with HD (4) HTN (hypertension) Current Visit: Yes Status: Chronic Qualifiers: Hypertension type: essential hypertension Qualified Code(s): I10 - Essential (primary) hypertension Plan to address problem: volume overload contributing to increased BP, continue lasix 80mg po qd, will adjust UF as tolerated. (5) Amputation of left lower extremity below knee Current Visit: Yes Status: Acute Subjective Date of service: 09/20/16 Principal diagnosis: left BKA Interval history: Patient awake, alert, in NAD Objective - Vital Signs Vital signs: Vital Signs - 12hr 09/19/16 09/19/16 09/20/16 23:24 23:27 08:35 Temperature 98.0 F Pulse Rate 66 66 Pulse Rate [ 63 Left Brachial] Respiratory 20 Rate Blood Pressure 157/72 157/72 Blood Pressure 155/66 [Left Arm] O2 Sat by Pulse 93 Oximetry 09/20/16 09:26 Temperature Pulse Rate 63 Pulse Rate [ Left Brachial] Respiratory Rate Blood Pressure 155/66 Blood Pressure [Left Arm] O2 Sat by Pulse Oximetry - General Appearance General appearance: well-developed, well-nourished, appears stated age, obese EENT: ATNC, PERRL, mucous membranes moist Neck: no JVD Respiratory: Present: Clear to Ascultation Cardiology: regular, S1S2 Gastrointestinal: normal, normoactive bowel sounds, obese Integumentary: no rash, other (++ edema ) Neurologic: no focal deficit, alert and oriented x3, strength 5/5, CN 3-12 intact Psychiatric: mood/affect appropriate, cooperative - Lab 09/12/16 14:32 09/18/16 05:18 Most recent lab results Calcium 7.8 mg/dL (8.4-10.2) L 09/18/16 05:18 Phosphorus 4.5 mg/dL (2.5-4.5) 09/14/16 08:25 Magnesium 1.8 mg/dL (1.7-2.3) 09/10/16 04:15
[2016-09-20 11:54] LABS: Calcium 7.7 mg/dL (8.4-10.2); Chloride 91.8 mmol/L (98-107); Potassium 3.5 mmol/L (3.6-5.0)
--- NOTE | 2016-09-20 13:34 | Discharge Summary ---
Providers - Providers Date of Admission: 09/07/16 20:15 Date of discharge: 09/20/16 Attending physician: GEOVANNA COOLEY 09/07/16 21:25 Consult to Physician [CONS] Routine Consulting Provider: BRENDA GARSIA Reason For Exam: acute on chronic renal failure Place consult to:: Dr. Garsia Notified:: Reese Phone number called:: [phone] Was contact made?: Yes If yes, spoke with:: Reese Time called:: 10:20 Occupational Therapy Evaluate and Treat [CONS] Routine Comment: Reason For Exam: left BKA Physical Therapy Evaluation and Treat [CONS] Routine Comment: Reason For Exam: left BKA Speech Therapy Evaluation and Treat [CONS] Routine Reason For Exam: cognitive screening 09/14/16 08:24 Consult to Case Management [CONS] Routine Services Needed at Discharge: Other Notified:: YES Phone number called:: [phone] Was contact made?: Yes If yes, spoke with:: JERRY JAMISON Time called:: 10:00 Comment:: arrange outpatient dialysis at [facility] Primary care physician: VIKKI MARAVILLA Hospitalization Reason for admission: left BKA Condition: Stable Hospital course: 61 y.o. female admitted to [facility] secondary to worsening left foot/2nd toe infection over the course of 3 months with associated ischemic changes. On admission, pt was found to also have an abscess at the left foot. Vascular Surgery took patient for open ray amputation of the second toe with incision and drainage of a left dorsal foot abscess with debridement on 08/27. Due to ongoing deterioration of wound, pt was later recommended for left BKA, which was completed on 08/30/16. Post-operative course was significant for altered mental status, CVA work-up negative; acute on chronic renal failure requiring prn hemodialysis (new during acute care admission) thought to be secondary to sepsis/IV Vanc/anemia; acute blood loss anemia s/p 2U pRBCs; significant functional deficits secondary to BKA. Pt completed IV ABX; Renal function stabilized adn HD was placed on hold. Once stable, pt was admitted to IRU for aggressive therapies and ongoing medical management. Rehab course significant for recommendation per Nephrology to resume HD. Residual limb incision site is healing well; anemia remains stable following transfusion prior to admission. Pt has participated with therapies, however, has been slow to progress. 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 At the time of discharge, total A for bed/chair/WC mobility; Jenny for WC mobility; non-ambulatory; remains Independent to maxA for ADLs. Barriers- generalized weakness and fatigue, new HD patient, decreased endurance, obesity. At this time, pt is recommended for transfer to SNF for ongoing care. >30 mins spent on d/c process; med reconciliation; wound check Disposition: DC/TX SNF W [facility] CERT - Discharge Diagnoses (1) Amputation of left lower extremity below knee Status: Acute (2) Diabetic infection of left foot Status: Acute (3) Acute on chronic renal failure Status: Acute (4) HTN (hypertension) Status: Chronic Qualifiers: Hypertension type: essential hypertension Qualified Code(s): I10 - Essential (primary) hypertension (5) Anemia due to blood loss, acute Status: Acute (6) Diabetes Status: Chronic Qualifiers: Diabetes mellitus type: type 2 Diabetes mellitus complication status: with neurologic complications Diabetes mellitus complication detail: with polyneuropathy 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 use Qualified Code(s): E11.42 - Type 2 diabetes mellitus with diabetic polyneuropathy; Z79.4 - exterminator (current) use of insulin Core Measure Documentation - Palliative Care Palliative Care/ Comfort Measures: Not Applicable - Core Measures Any of the following diagnoses?: none Exam - Constitutional Vitals: Temp Pulse Resp BP Pulse Ox 98.1 F 62 18 142/72 93 09/20/16 12:55 09/20/16 12:55 09/20/16 12:55 09/20/16 12:55 09/20/16 08:35 General appearance: Present: no acute distress, obese - EENT Eyes: Present: EOM intact ENT: hearing intact - Neck Neck: Present: supple, normal ROM - Respiratory Respiratory effort: normal - Extremities Extremity abnormal: other (sutures in place at left residual limb; healing well ; no drainage) - Psychiatric Psychiatric: appropriate mood/affect, cooperative - Neurologic Neurologic: CNII-XII intact Plan Activity: no driving until cleared by PCP, up only with assistance, fall precautions Weight Bearing Status: Full Weight Bearing Diet: renal Wound: keep clean and dry Special Instructions: physical therapy, occupational therapy Follow up with: [Primary Care Provider] - 7 Days MONROE NGUYEN DO [Staff Physician] - 7 Days
[2016-09-20] MEDS: APRESOLINE PO SCH (14:02)
[2016-09-20] MEDS: HEPARIN IV PRN (16:15)
[2016-09-20 18:21] VITALS: BP 159/69
== END 2016-09-20 20:05 | DRG 871 ==
LOC: 3B 20:15
PROVIDERS: ADMIT Family Medicine; ATTEND Family Medicine
PROC: 5A1D60Z (ICD-10-PCS; 2016-09-13)
PROC: 05PYX3Z Removal of Infusion Device from Upper Vein, External Approach (ICD-10-PCS; principal; 2016-09-16)
PROC: 02H633Z Insertion of Infusion Device into Right Atrium, Percutaneous Approach (ICD-10-PCS; 2016-09-16)
PROC: B5191ZA Fluoroscopy of Inferior Vena Cava using Low Osmolar Contrast, Guidance (ICD-10-PCS; 2016-09-16)
DX: A41.9 Sepsis, unspecified organism (principal); N17.0 Acute kidney failure with tubular necrosis; L02.612 Cutaneous abscess of left foot; D62 Acute posthemorrhagic anemia; E87.1 Hypo-osmolality and hyponatremia; N18.4 Chronic kidney disease, stage 4 (severe); E11.621 Type 2 diabetes mellitus with foot ulcer; L97.529 Non-pressure chronic ulcer of other part of left foot with unspecified severity; L08.9 Local infection of the skin and subcutaneous tissue, unspecified; E11.22 Type 2 diabetes mellitus with diabetic chronic kidney disease; I12.9 Hypertensive chronic kidney disease with stage 1 through stage 4 chronic kidney disease, or unspecified chronic kidney disease; Z96.641 Presence of right artificial hip joint; Z60.2 Problems related to living alone; E11.42 Type 2 diabetes mellitus with diabetic polyneuropathy; D63.1 Anemia in chronic kidney disease; R26.9 Unspecified abnormalities of gait and mobility; E66.01 Morbid (severe) obesity due to excess calories; Z89.512 Acquired absence of left leg below knee; Z98.890 Other specified postprocedural states; Z90.49 Acquired absence of other specified parts of digestive tract; Z79.4 Long term (current) use of insulin; Z79.899 Other long term (current) drug therapy; Z79.84 Long term (current) use of oral hypoglycemic drugs; Z83.3 Family history of diabetes mellitus; Z82.49 Family history of ischemic heart disease and other diseases of the circulatory system; Z68.36 Body mass index [BMI] 36.0-36.9, adult
CPT/HCPCS: 36415; 36558; 77001; 80048; 80053; 82962; 83735; 84100; 85025; 85027; A9270-GY; C1750; C1769; J0690; J0885; J1644; J1815; J2250; J3010; J7030; J7050